=== PATIENT | female | born 1935 | race Caucasian/White ===

== ENCOUNTER 2017-02-10 09:36 | Day surgery (SDC) | payer OTHER ==
[2017-02-09 13:11] VITALS: BMI 27.1
[2017-02-10 10:15] VITALS: TEMP 97.8
[2017-02-10] MEDS ORDERED: BUPIVACAINE HCL/PF 0.25% (2.5MG/ML) 10 ML VIAL ONE (11:59)
[2017-02-10] MEDS ORDERED: MIDAZOLAM HCL 2 MG/2 ML SINGLE DOSE VIAL ONE (12:01)
[2017-02-10] MEDS ORDERED: ceFAZolin SODIUM 1 GM VIAL ONE (12:24)
[2017-02-10] MEDS ORDERED: PROPOFOL 20 ML ONE (12:24)
[2017-02-10] MEDS ORDERED: ceFAZolin SODIUM 1 GM VIAL IVPB ONE (12:25)
[2017-02-10] MEDS ORDERED: LIDOCAINE HCL/PF 2% SDV 5ML VIAL ONE (12:31)
[2017-02-10] MEDS ORDERED: BUPIVACAINE 0.5% /EPI 1:200,000 10 ML VIAL IJ ONE (12:33)
[2017-02-10] MEDS ORDERED: BUPIVACAINE HCL/PF 0.25% (2.5MG/ML) 10 ML VIAL IJ ONE (12:40)
[2017-02-10] MEDS ORDERED: ONDANSETRON 4 MG/2 ML VIAL IVPUSH PRN (13:51)
[2017-02-10] MEDS ORDERED: LACTATED RINGERS SOLUTION 1,000 ML IV SCH (14:00)
[2017-02-10] MEDS ORDERED: oxyCODONE HCL 5 MG TABLET PO PRN (16:25)
[2017-02-10 17:16] VITALS: BP 145/67; PULSE 57
--- NOTE | 2017-02-10 23:13 | OP ---
DATE OF OPERATION: 02/10/2017 PROCEDURE: 1. Adjacent tissue transfer, right foot. 2. Condylectomy of third metatarsal, left foot. 3. Arthroplasty, second digit pipj , left food. 4. Arthroplasty, proximal interphalangeal joint, third digit, left foot. 5. Synovectomy, peroneal tendon, left. 6. Tenotomy and capsulotomy, fourth metatarsophalangeal joint, left. 7. Tenotomy and capsulotomy, fifth metatarsophalangeal joint, left. 8. Neurolysis, third interspace, left. 9. Flexor tenotomy, distal interphalangeal joint, fourth digit, left. 10. Flexor tenotomy, distal interphalangeal joint, fifth digit, left. PREOPERATIVE DIAGNOSES: 1. Skin contracture, cicatrix, dorsum, left foot. 2. Osteoarthritis, third metatarsal, left foot. 3. Hammer digits, second and third, left foot. 4. Peroneal brevis tenosynovitis. 5. Contracture metacarpophalangeal joints four and five, left foot. 6. Neuroma, third interspace, left foot. 7. Mallet toe, fourth and fifth digits, left foot. POSTOPERATIVE DIAGNOSES: 1. Skin contracture, cicatrix, dorsum, left foot. 2. Osteoarthritis, third metatarsal, left foot. 3. Hammer digits, second and third, left foot. 4. Peroneal brevis tenosynovitis. 5. Contracture metacarpophalangeal joints four and five, left foot. 6. Neuroma, third interspace, left foot. 7. Mallet toe, fourth and fifth digits, left foot. SURGEON: Devang Shrestha DPM ANESTHESIA: MAC. ANESTHESIOLOGIST: DESCRIPTION OF PROCEDURE: The patient was brought to the operating room and placed on the OR table in supine position. Neuroleptic anesthesia was administered as well as an ankle block consisting of 0.5% Marcaine plain and 0.5% Marcaine with epinephrine 1:200,000. A well-padded pneumatic ankle tourniquet was inflated to 250 mmHg on the left side to affect hemostasis. The left foot was prepped and draped in the usual sterile fashion. 1. Adjacent tissue transfer, left foot. Attention was directed to the dorsum of the left foot on the lateral side. A large contracted cicatrix was noted paralleling the fifth metatarsal. A linear incision was made paralleling the cicatrix. The incision was deepened down through subcutaneous tissue, maintaining hemostasis as necessary with 4-0 ligature. A Z-plasty was performed to reorientate the cicatrix from a linear to a transverse cicatrix. The central arm is the actual cicatrix and 2 arms on either side at 60-degree angles were planned. The incisions were made on either side of the cicatrix down through, including subcutaneous tissue. Two triangular flaps, including subcutaneous tissue, was rotated so as to reorientate the cicatrix from longitudinal to transverse. Closure was performed using 4-0 nylon simple and apical sutures. 2. Condylectomy, third metatarsal, left foot. A linear incision was made over the third metatarsophalangeal joint. The incision was deepened down through the subcutaneous tissue maintaining hemostasis as necessary with 4-0 ligature. The superficial fascia was freed from the deep fascia. The extensor complex tendon complex was addressed and an open Z-plasty was performed. A linear capsulotomy was created at the third MPJ. An oscillating saw was used to resect the plantar condyle of the third metatarsal. All bony edges were rasped smooth and wound site was flushed with sterile saline. Closure was performed using 4-0 Vicryl joint capsule, extensor tendon and subcutaneous closure and 4-0 nylon for skin. 3. Arthroplasty, PIPJ, second digit, left foot with 0.045 K-wire stabilization. Two converging semi-elliptical incisions were made over the PIPJ second digit, left. The incisions were deepened down and a wedge of skin removed in toto. A transverse incision was made into the PIPJ. The head of the proximal phalanx was delivered into the wound site after transecting the medial and lateral collateral ligaments. The head was then transected using the double action bone cutting forceps. A 0.045 K-wire was driven out the middle and distal phalanx and retrograded into the proximal phalanx. K-wire was bent and cut. Closure was performed using 4-0 Vicryl for extensor tendon and 4-0 nylon for skin. 4. Arthroplasty, PIPJ, third digit, left, with 0.045 K-wire stabilization. Attention was directed to the PIPJ of the third digit, left, where 2 converging semi-elliptical incisions were created. A wedge of skin was removed in toto. Transverse incision was made into the PIPJ of the third digit and the head and of the proximal phalanx was delivered into the wound site. The head of the proximal phalanx was transected and the head was removed using the double action bone cutting forceps. A 0.045 K-wire was driven out the middle and distal phalanx and retrograded back into the proximal phalanx and partially into the third metatarsal head. Wound site was flushed with sterile saline. Closure was performed using 4-0 Vicryl for extensor tendon, 4-0 nylon for the skin. 5. Peroneal tenosynovectomy, left foot. Attention was directed to the insertion of the peroneal brevis tendon. The incision was deepened down through subcutaneous tissue, maintaining hemostasis as necessary with 4-0 Vicryl ligature. Superficial fascia was freed from the deep fascia. The peroneal tendon sheath was identified and a linear incision was made by the insertion going proximally. The peroneal tendon proper was delivered into the wound site. Hypertrophic synovitis was identified and debrided out of the wound site. Part of the peroneal tendon was debrided, as there were longitudinal tears. After a thorough debridement and removal of all of the hypertrophic synovitis, repair of the peroneal tendon sheath was performed with 4-0 Vicryl. Tendon sheath closure 4.0 vicyrl subcutaneous closure 4.0 vcyrl. Skin closure with 4-0 nylon. 6. Tenotomy and capsulotomy, fourth metatarsophalangeal joint, left foot. A linear incision was made between the fourth and fifth MPJs. The incision was deepened down through subcutaneous tissue, maintaining hemostasis as necessary with 4-0 Vicryl ligature. Superficial fascia was freed from the deep fascia. The extensor tendon complex was identified and open Z-plasty was performed. Then, a U-shaped capsulotomy was made into the fourth MPJ. Medial and lateral collateral ligaments were section. The wound site was flushed with sterile saline and the contracture was noted to reduce. Closure was performed using 4-0 Vicryl for extensor tendon complex. 7. Tenotomy and capsulotomy, fifth metatarsophalangeal joint, left foot. With exposure gained from the previous procedure, attention was directed to the extensor tendon complex of the fifth MPJ. Open Z-plasty was performed of the extensor tendon and then a U-shaped capsulotomy was made into the fifth MPJ. Medial and lateral collateral ligaments were sectioned. The contracture was noted to reduce. The wound site was flushed with sterile saline. Closure was performed using 4-0 Vicryl for extensor tendon complex and 4-0 nylon for skin. 8. External neurolysis, third interspace, left foot. Attention was directed to the third interspace, left foot. Previously placed incision was then re-dissected down to the third interspace. Deep transverse metatarsal ligament was sectioned and sharp and blunt dissection was used to free the trapped nerve of the lateral side of the fourth metatarsal head. Nerve was mobilized into the interspace and Celestone was injected along the length of the nerve. The wound site was flushed with sterile saline. Closure was performed using 4-0 nylon for the skin. 9. Flexor tenotomy and capsulotomy, DIPJ, fourth digit left. Attention was directed to the plantar aspect of the DIPJ of the fourth digit, left. The transverse incision was made into the DIPJ. The incision was deepened down to the distal interphalangeal joint where flexor tenotomy and capsulotomy was created transversely and the contracture was noted to reduce. The wound site was flushed with sterile saline. Closure was performed using 4-0 nylon for skin. 10. Flexor tenotomy and capsulotomy, DIPJ, fifth digit, left. Attention was directed to the plantar aspect of the fifth digit where a transverse incision was made at the DIPJ. The incision was deepened down through subcutaneous tissue and transverse tenotomy and capsulotomy was made at the DIPJ, fifth digit, left. Wound site was flushed with sterile saline. Closure was performed using 4-0 nylon. Postoperatively, all surgical sites were dressed with sterile 4 x 4's, Anjali, and Coban wrap. Well-padded pneumatic ankle tourniquet was deflated to the left foot and normal hyperemic flush noted to return to all digits of the left foot. The patient tolerated the surgery and anesthesia well, left the OR room for recovery room with vital signs stable in an apparent satisfactory condition. DEVANG SHRESTHA DPM [id number] [facility]
--- NOTE | 2017-02-14 12:54 | PATH ---
Surgical Pathology Report Patient Name: [facility]. Rec. #: [id number] /Age/Gender: 1935 (Age: 81) / F Account: [id number] Location: [facility] Taken: 02/10/2017 Received: 02/11/2017 Reported: 02/14/2017 Physicians: Devang Montano DPM Specimen(s) Received A: METATARSAL HEAD THIRD DIGIT LEFT FOOT B: METATARSAL HEAD SECOND DIGIT LEFT FOOT C: TENDON LEFT FOOT THIRD TOE Clinical History Hammer digits, tracture skin joints, osteoarthritis Final Diagnosis A. BONE AND CARTILAGE, LEFT FOOT, THIRD METATARSAL HEAD, ARTHROPLASTY: BONE AND CARTILAGE WITH DEGENERATIVE CHANGES. B. BONE AND CARTILAGE, LEFT FOOT, SECOND METATARSAL HEAD, ARTHROPLASTY: BONE AND CARTILAGE WITH DEGENERATIVE CHANGES. C. SOFT TISSUE, LEFT FOOT, THIRD TOE TENDON, EXCISION: BENIGN DENSE FIBROCONNECTIVE TISSUE. Electronically Signed Teofilo Crowder M.D. Gross Description A. Received in formalin labeled "third metatarsal head left foot" is a 1.6 x 0.9 x 0.4 cm zhu, irregular, unremarkable portion of bone. The specimen is partially surfaced by zhu articular cartilage. [place] sections are submitted in one cassette, following decalcification. B. Received in formalin labeled "second digit metatarsal head left foot" is a 1.0 x 0.6 x 0.5 cm zhu, irregular, unremarkable portion of bone. The specimen is partially surfaced by zhu articular cartilage. The specimen is bisected and entirely submitted in one cassette, following decalcification. C. Received in formalin labeled "left foot third toe tendon" are 2 zhu fragments of soft tissue measuring 0.3 and 0.5 cm in greatest dimension. The specimens are submitted in toto in one cassette, following decalcification. 02/11/2017 saudi02/11/2017
== END 2017-02-10 17:17 | disposition home or self-care (01) ==
LOC: JASU-SURG 09:36
PROVIDERS: ATTEND Podiatrist
PROC: 0SNN0ZZ Release Left Metatarsal-Phalangeal Joint, Open Approach (ICD-10-PCS; 2017-02-10)
PROC: 01N50ZZ Release Median Nerve, Open Approach (ICD-10-PCS; 2017-02-10)
PROC: 0LNW0ZZ Release Left Foot Tendon, Open Approach (ICD-10-PCS; 2017-02-10)
PROC: 0SBN0ZZ Excision of Left Metatarsal-Phalangeal Joint, Open Approach (ICD-10-PCS; 2017-02-10)
PROC: 01NH0ZZ Release Peroneal Nerve, Open Approach (ICD-10-PCS; 2017-02-10)
PROC: 0SRQ0JZ Replacement of Left Toe Phalangeal Joint with Synthetic Substitute, Open Approach (ICD-10-PCS; principal; 2017-02-10 12:00)
DX: M20.42 Other hammer toe(s) (acquired), left foot (principal); L90.5 Scar conditions and fibrosis of skin; M19.072 Primary osteoarthritis, left ankle and foot; M65.872 Other synovitis and tenosynovitis, left ankle and foot; M24.575 Contracture, left foot; G57.82 Other specified mononeuropathies of left lower limb
CPT/HCPCS: 88304-TC; 88311-TC; 94760

== ENCOUNTER 2020-11-17 13:57 | Emergency (ER) | payer OTHER ==
[2020-11-17] MEDS ORDERED: LIDOCAINE 5% TOPICAL PATCH TP ONE (14:27)
[2020-11-17 15:10] VITALS: BP 122/52; PULSE 67; TEMP 98.2; BMI 25.7
[2020-11-17] MEDS ORDERED: LIDOCAINE 5% TOPICAL PATCH ONE (15:11)
[2020-11-17] MEDS ORDERED: ACETAMINOPHEN 325 MG TABLET (FP) PO ONE (19:06)
[2020-11-17] MEDS ORDERED: KETOROLAC TROMETHAMINE 15 MG/ML VIAL IM ONE (19:06)
[2020-11-17] MEDS ORDERED: KETOROLAC TROMETHAMINE 15 MG/ML VIAL ONE (19:54)
[2020-11-17] MEDS ORDERED: ACETAMINOPHEN 325 MG TABLET (FP) ONE (19:55)
[2020-11-17] MEDS ORDERED: LIDOCAINE PATCH REMOVAL MC SCH (22:00)
== END 2020-11-17 20:30 | disposition home or self-care (01) ==
LOC: FER 13:57
PROC: 3E0233Z Introduction of Anti-inflammatory into Muscle, Percutaneous Approach (ICD-10-PCS; principal; 2020-11-17)
DX: M54.5 Low back pain (principal)
CPT/HCPCS: 72100-TC-FY; 72170-TC-FY; 99284-25

== ENCOUNTER 2020-12-04 15:09 | Inpatient (IN) | payer OTHER ==
[2020-12-04] MEDS ORDERED: LACTATED RINGERS SOLUTION 1000 ML INFUS.BAG IV ONE (18:39)
[2020-12-04 19:13] LABS: BASO % 0.2 % (0-2.0); HEMATOCRIT 31.6 % (32.4-45.2); HEMOGLOBIN 10.1 GM/dL (10.7-15.3); LYMPH % 5.8 % (8-40); MCH 31.1 pg (25.7-33.7); MCHC 32.1 g/dl (32.0-36.0); MEAN CELL VOLUME 96.8 fl (80-96); MEAN PLT VOLUME 9.3 fl (7.5-11.1); MONO % 77.6 % (3.8-10.2); NEUT % 16.4 % (42.8-82.8); PLATELET COUNT 85 K/MM3 (134-434); RBC 3.26 M/mm3 (3.60-5.2); RDW 17.8 % (11.6-15.6); WHITE BLOOD COUNT 17.4 K/mm3 (4.0-10.0)
[2020-12-04 19:40] LABS: CHLORIDE 108 mmol/L (98-107); SODIUM 137 mmol/L (136-145)
[2020-12-04 19:42] LABS: ALBUMIN 3.6 g/dl (3.4-5.0); ANION GAP 6 MMOL/L (8-16); CALCIUM 9.2 mg/dL (8.5-10.1); CO2 24 mmol/L (21-32)
[2020-12-04 19:43] LABS: BLOOD UREA NITROGEN 76.3 mg/dL (7-18); GLUCOSE,RANDOM 94 mg/dL (74-106)
[2020-12-04 19:46] LABS: CREATININE 2.2 mg/dL (0.55-1.3); SGOT/AST 9 U/L (15-37); SGPT/ALT < 6 U/L (13-61)
[2020-12-04 19:47] LABS: BILIRUBIN,TOTAL 0.6 mg/dL (0.2-1); TOT PROT 5.8 g/dl (6.4-8.2)
[2020-12-04 19:48] LABS: ALK PHOS 147 U/L (45-117)
[2020-12-04 20:45] LABS: ANISOCYTOSIS 0; MACROCYTOSIS 0; PLATELET ESTIMATE DECREASED
[2020-12-04 21:36] LABS: EPI CELLS 33 /uL (0-25.1); HYALINE CASTS 2 /uL (0-3.1); URINE APPEARANCE CLOUDY; URINE BACTERIA 530 /uL (0-1359); URINE BILIRUBIN NEGATIVE (NEGATIVE); URINE COLOR YELLOW; URINE GLUCOSE (UA) NEGATIVE (NEGATIVE); URINE KETONE NEGATIVE (NEGATIVE); URINE LEUK ESTERASE 3+ (NEGATIVE); URINE NITRITE NEGATIVE (NEGATIVE); URINE PROTEIN NEGATIVE (NEGATIVE); URINE RBC 17 /uL (0-23.9); URINE UROBILINOGEN 0.2 mg/dL (0.2-1.0); URINE WBC 72 /uL (0-25.8)
[2020-12-04] MEDS ORDERED: amLODIPine BESYLATE 5 MG TABLET (FP) PO ONE (23:52)
[2020-12-05] MEDS ORDERED: ACETAMINOPHEN 325 MG TABLET (FP) PO PRN (00:41)
[2020-12-05] MEDS ORDERED: SODIUM CHLORIDE 1,000 ML IV SCH (01:00)
[2020-12-05 02:33] LABS: EPI CELLS 18 /uL (0-25.1); HYALINE CASTS 1 /uL (0-3.1); URINE APPEARANCE CLOUDY; URINE BACTERIA 1164 /uL (0-1359); URINE BILIRUBIN NEGATIVE (NEGATIVE); URINE COLOR YELLOW; URINE GLUCOSE (UA) NEGATIVE (NEGATIVE); URINE KETONE NEGATIVE (NEGATIVE); URINE LEUK ESTERASE 3+ (NEGATIVE); URINE NITRITE NEGATIVE (NEGATIVE); URINE PROTEIN NEGATIVE (NEGATIVE); URINE RBC 25 /uL (0-23.9); URINE UROBILINOGEN 0.2 mg/dL (0.2-1.0); URINE WBC 285 /uL (0-25.8)
[2020-12-05] MEDS ORDERED: ALPRAZolam 1 MG TABLET PO ONE (05:01)
[2020-12-05] MEDS ORDERED: LEVOTHYROXINE NA 25 MCG TABLET (FP) ONE (05:05)
[2020-12-05] MEDS ORDERED: ALPRAZolam 0.25 MG TABLET ONE (05:05)
[2020-12-05] MEDS ORDERED: CARBIDOPA/LEVODOPA 25/100 TABLET (FP) ONE ×2 (05:05→15:53)
[2020-12-05] MEDS: CARBIDOPA/LEVODOPA 25/100 TABLET (FP) PO SCH ×3 (05:18→21:40)
[2020-12-05] MEDS: LEVOTHYROXINE NA 50 MCG TABLET (FP) PO SCH (06:24)
[2020-12-05 06:34] LABS: HEMATOCRIT 27.8 % (32.4-45.2); HEMOGLOBIN 9.4 GM/dL (10.7-15.3); MCHC 33.8 g/dl (32.0-36.0); MEAN CELL VOLUME 94.6 fl (80-96); MEAN PLT VOLUME 9.1 fl (7.5-11.1); PLATELET COUNT 79 K/MM3 (134-434); RBC 2.93 M/mm3 (3.60-5.2); RDW 17.6 % (11.6-15.6); WHITE BLOOD COUNT 14.3 K/mm3 (4.0-10.0)
[2020-12-05 06:54] LABS: CHLORIDE 110 mmol/L (98-107); SODIUM 140 mmol/L (136-145)
[2020-12-05 06:56] LABS: CALCIUM 8.8 mg/dL (8.5-10.1)
[2020-12-05 06:57] LABS: ANION GAP 6 MMOL/L (8-16); BLOOD UREA NITROGEN 67.4 mg/dL (7-18); CO2 24 mmol/L (21-32); GLUCOSE,RANDOM 77 mg/dL (74-106); MAGNESIUM 2.1 mg/dL (1.8-2.4)
[2020-12-05 07:00] LABS: CREATININE 1.8 mg/dL (0.55-1.3); PHOSPHOROUS 3.4 mg/dL (2.5-4.9); SGOT/AST 12 U/L (15-37)
[2020-12-05 07:01] LABS: BILIRUBIN,TOTAL 0.6 mg/dL (0.2-1); IRON SERUM 74 ug/dL (50-175); TOT PROT 5.2 g/dl (6.4-8.2); TOTAL IRON BINDING CAPACITY 195 ug/dL (250-450)
[2020-12-05 07:03] LABS: ALK PHOS 134 U/L (45-117)
[2020-12-05 07:14] LABS: SGPT/ALT < 6 U/L (13-61)
[2020-12-05] MEDS ORDERED: LIDOCAINE 5% TOPICAL PATCH ONE (09:24)
[2020-12-05] MEDS: LIDOCAINE 5% TOPICAL PATCH TP SCH (09:39)
[2020-12-05] MEDS ORDERED: DOXYCYCLINE HYCLATE 100 MG CAPSULE PO SCH (10:00)
[2020-12-05 11:08] LABS: URIC ACID 10.4 mg/dL (2.6-7.2)
[2020-12-05 18:33] VITALS: BMI 24.0
[2020-12-05] MEDS: LIDOCAINE PATCH REMOVAL MC SCH (21:41)
[2020-12-06] MEDS: CARBIDOPA/LEVODOPA 25/100 TABLET (FP) PO SCH ×3 (05:47→21:33)
[2020-12-06] MEDS: LEVOTHYROXINE NA 50 MCG TABLET (FP) PO SCH (06:39)
[2020-12-06 09:12] LABS: BASO % 0.1 % (0-2.0); EOS % 0.3 % (0-4.5); HEMATOCRIT 28.8 % (32.4-45.2); HEMOGLOBIN 9.5 GM/dL (10.7-15.3); LYMPH % 5.9 % (8-40); MCH 31.6 pg (25.7-33.7); MCHC 33.1 g/dl (32.0-36.0); MEAN CELL VOLUME 95.3 fl (80-96); MEAN PLT VOLUME 9.1 fl (7.5-11.1); MONO % 80.3 % (3.8-10.2); NEUT % 13.4 % (42.8-82.8); PLATELET COUNT 71 K/MM3 (134-434); RBC 3.02 M/mm3 (3.60-5.2); RDW 17.4 % (11.6-15.6); WHITE BLOOD COUNT 13.9 K/mm3 (4.0-10.0)
[2020-12-06 09:22] LABS: CHLORIDE 110 mmol/L (98-107); SODIUM 139 mmol/L (136-145)
[2020-12-06 09:26] LABS: ALBUMIN 2.8 g/dl (3.4-5.0); ANION GAP 5 MMOL/L (8-16); BLOOD UREA NITROGEN 49.8 mg/dL (7-18); CALCIUM 8.6 mg/dL (8.5-10.1); CO2 24 mmol/L (21-32)
[2020-12-06 09:28] LABS: GLUCOSE,RANDOM 70 mg/dL (74-106)
[2020-12-06 09:30] LABS: CREATININE 1.5 mg/dL (0.55-1.3); SGOT/AST 10 U/L (15-37)
[2020-12-06 09:31] LABS: PHOSPHOROUS 2.6 mg/dL (2.5-4.9)
[2020-12-06 09:32] LABS: BILIRUBIN,TOTAL 0.6 mg/dL (0.2-1); TOT PROT 5.1 g/dl (6.4-8.2)
[2020-12-06 09:33] LABS: ALK PHOS 136 U/L (45-117); SGPT/ALT < 6 U/L (13-61)
[2020-12-06] MEDS ORDERED: cefTRIAXone SODIUM 1 GM VIAL ONE (09:35)
[2020-12-06] MEDS ORDERED: DEXTROSE 5%-WATER - 50 ML IVPB ONE (09:35)
[2020-12-06 09:54] LABS: ANISOCYTOSIS 1+; MACROCYTOSIS 1+; OVALOCYTE 1+; PLATELET ESTIMATE DECREASED
[2020-12-06] MEDS: CEFTRIAXONE 1 GM in DEXTROSE 5%-WATER - 50 ML IVPB SCH (10:24)
[2020-12-06] MEDS: LIDOCAINE 5% TOPICAL PATCH TP SCH (10:26)
[2020-12-06] MEDS: SODIUM CHLORIDE 0.45% 1,000 ML IV SCH (15:51)
[2020-12-06] MEDS ORDERED: PT OWN MED DRAWER 7, Y5N ONE (21:18)
[2020-12-06] MEDS ORDERED: INSULIN (NOVOLOG) ASPART 100 UNITS/ML 10ML VIAL ONE (21:19)
[2020-12-06] MEDS: TERAZOSIN HCL 1 MG CAPSULE PO SCH (21:34)
[2020-12-06] MEDS: LIDOCAINE PATCH REMOVAL MC SCH (21:34)
[2020-12-06] MEDS ORDERED: TERAZOSIN HCL 1 MG PO SCH (22:00)
[2020-12-07] MEDS: CARBIDOPA/LEVODOPA 25/100 TABLET (FP) PO SCH ×3 (06:00→22:24)
[2020-12-07] MEDS: SODIUM CHLORIDE 0.45% 1,000 ML IV SCH (06:00)
[2020-12-07] MEDS: LEVOTHYROXINE NA 50 MCG TABLET (FP) PO SCH (06:01)
[2020-12-07 09:45] LABS: BASO % 0.2 % (0-2.0); EOS % 0.5 % (0-4.5); HEMATOCRIT 28.6 % (32.4-45.2); HEMOGLOBIN 9.5 GM/dL (10.7-15.3); LYMPH % 6.6 % (8-40); MCH 31.6 pg (25.7-33.7); MCHC 33.1 g/dl (32.0-36.0); MEAN CELL VOLUME 95.6 fl (80-96); MEAN PLT VOLUME 9.2 fl (7.5-11.1); MONO % 81.6 % (3.8-10.2); NEUT % 11.1 % (42.8-82.8); PLATELET COUNT 67 K/MM3 (134-434); RBC 2.99 M/mm3 (3.60-5.2); RDW 17.7 % (11.6-15.6); WHITE BLOOD COUNT 14.3 K/mm3 (4.0-10.0)
[2020-12-07 10:16] LABS: CALCIUM 8.6 mg/dL (8.5-10.1)
[2020-12-07 10:17] LABS: BLOOD UREA NITROGEN 42.9 mg/dL (7-18); MAGNESIUM 1.9 mg/dL (1.8-2.4)
[2020-12-07 10:20] LABS: BILIRUBIN,TOTAL 0.9 mg/dL (0.2-1); CREATININE 1.4 mg/dL (0.55-1.3); PHOSPHOROUS 2.5 mg/dL (2.5-4.9)
[2020-12-07] MEDS ORDERED: cefTRIAXone SODIUM 1 GM VIAL ONE (10:20)
[2020-12-07] MEDS ORDERED: DEXTROSE 5%-WATER - 50 ML IVPB ONE (10:21)
[2020-12-07] MEDS: CEFTRIAXONE 1 GM in DEXTROSE 5%-WATER - 50 ML IVPB SCH (10:26)
[2020-12-07] MEDS: LIDOCAINE 5% TOPICAL PATCH TP SCH (10:27)
[2020-12-07 11:23] LABS: ANISOCYTOSIS 1+; MACROCYTOSIS 0; PLATELET ESTIMATE DECREASED
[2020-12-07] MEDS: ACETAMINOPHEN 500 MG TABLET (FP) PO SCH ×2 (17:13→22:25)
[2020-12-07] MEDS ORDERED: PT OWN MED DRAWER 7, Y5N ONE (22:21)
[2020-12-07] MEDS: TERAZOSIN HCL 1 MG CAPSULE PO SCH (22:23)
[2020-12-07] MEDS: LIDOCAINE PATCH REMOVAL MC SCH (22:33)
[2020-12-08] MEDS: ACETAMINOPHEN 500 MG TABLET (FP) PO SCH ×2 (04:38→11:43)
[2020-12-08] MEDS: LEVOTHYROXINE NA 50 MCG TABLET (FP) PO SCH (07:05)
[2020-12-08] MEDS: CARBIDOPA/LEVODOPA 25/100 TABLET (FP) PO SCH ×3 (07:05→21:37)
[2020-12-08 08:50] LABS: BASO % 0.2 % (0-2.0); EOS % 1.2 % (0-4.5); HEMATOCRIT 27.7 % (32.4-45.2); HEMOGLOBIN 8.9 GM/dL (10.7-15.3); LYMPH % 7.1 % (8-40); MCHC 32.2 g/dl (32.0-36.0); MEAN CELL VOLUME 96.1 fl (80-96); MEAN PLT VOLUME 9.5 fl (7.5-11.1); MONO % 79.9 % (3.8-10.2); NEUT % 11.6 % (42.8-82.8); PLATELET COUNT 52 K/MM3 (134-434); RBC 2.88 M/mm3 (3.60-5.2); RDW 17.3 % (11.6-15.6); WHITE BLOOD COUNT 10.4 K/mm3 (4.0-10.0)
[2020-12-08 08:57] LABS: INR 1.2 (0.83-1.09); PROTHROMBIN TIME (PATIENT) 14.7 SEC (9.7-13.0)
[2020-12-08 09:00] LABS: ACTIVATED PTT 28.2 SECONDS (25.2-36.5)
[2020-12-08 09:09] LABS: CHLORIDE 109 mmol/L (98-107); SODIUM 136 mmol/L (136-145)
[2020-12-08 09:17] LABS: CALCIUM 8.2 mg/dL (8.5-10.1)
[2020-12-08 09:18] LABS: ALBUMIN 2.7 g/dl (3.4-5.0); ANION GAP 6 MMOL/L (8-16); BLOOD UREA NITROGEN 35.6 mg/dL (7-18); CO2 21 mmol/L (21-32); GLUCOSE,RANDOM 70 mg/dL (74-106); MAGNESIUM 1.9 mg/dL (1.8-2.4)
[2020-12-08 09:20] LABS: CREATININE 1.3 mg/dL (0.55-1.3)
[2020-12-08 09:21] LABS: PHOSPHOROUS 2.4 mg/dL (2.5-4.9); SGOT/AST 10 U/L (15-37); SGPT/ALT < 6 U/L (13-61)
[2020-12-08 09:22] LABS: BILIRUBIN,TOTAL 0.5 mg/dL (0.2-1); TOT PROT 4.5 g/dl (6.4-8.2)
[2020-12-08 09:23] LABS: ALK PHOS 123 U/L (45-117)
[2020-12-08] MEDS ORDERED: NAPH,MB-DB/K PH,MBDB POWDER PACKET PO ONE (10:00)
[2020-12-08 10:14] LABS: URIC ACID 7.5 mg/dL (2.6-7.2)
[2020-12-08 10:21] LABS: LDH 126 U/L (84-246)
[2020-12-08] MEDS ORDERED: cefTRIAXone SODIUM 1 GM VIAL ONE (10:34)
[2020-12-08] MEDS ORDERED: DEXTROSE 5%-WATER - 50 ML IVPB ONE (10:34)
[2020-12-08] MEDS ORDERED: PT OWN MED DRAWER 7, Y5N ONE ×2 (10:39→21:35)
[2020-12-08] MEDS: LIDOCAINE 5% TOPICAL PATCH TP SCH (10:41)
[2020-12-08] MEDS: CEFTRIAXONE 1 GM in DEXTROSE 5%-WATER - 50 ML IVPB SCH (10:41)
[2020-12-08] MEDS: ACETAMINOPHEN 500 MG TABLET (FP) PO PRN (11:10)
[2020-12-08 12:07] LABS: ANISOCYTOSIS 1+; MACROCYTOSIS 0; OVALOCYTE 1+; PLATELET ESTIMATE DECREASED
[2020-12-08] MEDS: NEOMYCIN/POLYMYXIN/BACITRACIN (TRIPLE ANTIBIOTIC) 28 GM OINTMENT TP SCH (14:19)
[2020-12-08] MEDS: TERAZOSIN HCL 1 MG CAPSULE PO SCH (21:38)
[2020-12-08] MEDS: LIDOCAINE PATCH REMOVAL MC SCH (21:39)
[2020-12-09] MEDS: CARBIDOPA/LEVODOPA 25/100 TABLET (FP) PO SCH ×3 (06:26→21:43)
[2020-12-09] MEDS: LEVOTHYROXINE NA 50 MCG TABLET (FP) PO SCH (06:26)
[2020-12-09 08:44] LABS: BASO % 0.2 % (0-2.0); EOS % 1.3 % (0-4.5); HEMATOCRIT 28.8 % (32.4-45.2); HEMOGLOBIN 9.6 GM/dL (10.7-15.3); MCH 31.7 pg (25.7-33.7); MCHC 33.3 g/dl (32.0-36.0); MEAN CELL VOLUME 95.2 fl (80-96); MEAN PLT VOLUME 9.3 fl (7.5-11.1); MONO % 75.1 % (3.8-10.2); NEUT % 15.4 % (42.8-82.8); PLATELET COUNT 56 K/MM3 (134-434); RBC 3.03 M/mm3 (3.60-5.2); RDW 17.3 % (11.6-15.6); WHITE BLOOD COUNT 10.5 K/mm3 (4.0-10.0)
[2020-12-09 09:08] LABS: CHLORIDE 108 mmol/L (98-107); SODIUM 136 mmol/L (136-145)
[2020-12-09 09:13] LABS: ALBUMIN 2.8 g/dl (3.4-5.0); BLOOD UREA NITROGEN 31.3 mg/dL (7-18); CALCIUM 8.7 mg/dL (8.5-10.1); GLUCOSE,RANDOM 70 mg/dL (74-106)
[2020-12-09 09:16] LABS: ANION GAP 7 MMOL/L (8-16); CO2 21 mmol/L (21-32); CREATININE 1.3 mg/dL (0.55-1.3); PHOSPHOROUS 2.3 mg/dL (2.5-4.9); SGOT/AST 11 U/L (15-37)
[2020-12-09 09:17] LABS: BILIRUBIN,TOTAL 0.4 mg/dL (0.2-1); TOT PROT 4.9 g/dl (6.4-8.2)
[2020-12-09 09:18] LABS: ALK PHOS 137 U/L (45-117)
[2020-12-09] MEDS ORDERED: DEXTROSE 5%-WATER - 50 ML IVPB ONE (09:24)
[2020-12-09] MEDS ORDERED: cefTRIAXone SODIUM 1 GM VIAL ONE (09:24)
[2020-12-09 09:26] LABS: SGPT/ALT < 6 U/L (13-61)
[2020-12-09] MEDS: CEFTRIAXONE 1 GM in DEXTROSE 5%-WATER - 50 ML IVPB SCH (09:29)
[2020-12-09] MEDS: ACETAMINOPHEN 500 MG TABLET (FP) PO PRN (09:30)
[2020-12-09] MEDS: LIDOCAINE 5% TOPICAL PATCH TP SCH (09:30)
[2020-12-09] MEDS: NEOMYCIN/POLYMYXIN/BACITRACIN (TRIPLE ANTIBIOTIC) 28 GM OINTMENT TP SCH (09:41)
[2020-12-09] MEDS ORDERED: NAPH,MB-DB/K PH,MBDB POWDER PACKET PO ONE (11:25)
[2020-12-09 12:22] LABS: ANISOCYTOSIS 0; HELMET CELLS 0; HOWELL-JOLLY BODIES 0; MACROCYTOSIS 0; OVALOCYTE 0; PLATELET ESTIMATE DECREASED; ROULEAU 0; SICKELED CELLS 0; TARGET CELLS 0; TEAR DROP CELLS 0; TOXIC GRANULATION 0
[2020-12-09] MEDS ORDERED: PT OWN MED DRAWER 7, Y5N ONE (21:30)
[2020-12-09] MEDS: TERAZOSIN HCL 1 MG CAPSULE PO SCH (21:43)
[2020-12-09] MEDS: LIDOCAINE PATCH REMOVAL MC SCH (21:43)
[2020-12-10] MEDS: ACETAMINOPHEN 500 MG TABLET (FP) PO PRN (03:19)
[2020-12-10] MEDS: CARBIDOPA/LEVODOPA 25/100 TABLET (FP) PO SCH (06:22)
[2020-12-10] MEDS: LEVOTHYROXINE NA 50 MCG TABLET (FP) PO SCH (06:22)
[2020-12-10 09:25] LABS: BASO % 0.3 % (0-2.0); EOS % 1.1 % (0-4.5); HEMATOCRIT 28.5 % (32.4-45.2); HEMOGLOBIN 9.6 GM/dL (10.7-15.3); LYMPH % 10.2 % (8-40); MCH 31.8 pg (25.7-33.7); MCHC 33.5 g/dl (32.0-36.0); MEAN CELL VOLUME 94.7 fl (80-96); MEAN PLT VOLUME 9.8 fl (7.5-11.1); MONO % 72.6 % (3.8-10.2); NEUT % 15.8 % (42.8-82.8); PLATELET COUNT 61 K/MM3 (134-434); RBC 3.01 M/mm3 (3.60-5.2); RDW 17.3 % (11.6-15.6); WHITE BLOOD COUNT 8.7 K/mm3 (4.0-10.0)
[2020-12-10 09:40] LABS: CHLORIDE 108 mmol/L (98-107); SODIUM 135 mmol/L (136-145)
[2020-12-10 09:56] LABS: CALCIUM 8.9 mg/dL (8.5-10.1)
[2020-12-10 09:58] LABS: ALBUMIN 2.9 g/dl (3.4-5.0)
[2020-12-10 09:59] LABS: ANION GAP 6 MMOL/L (8-16); BILIRUBIN,TOTAL 0.4 mg/dL (0.2-1); BLOOD UREA NITROGEN 30.1 mg/dL (7-18); CO2 22 mmol/L (21-32); GLUCOSE,RANDOM 72 mg/dL (74-106)
[2020-12-10 10:00] LABS: ALK PHOS 135 U/L (45-117)
[2020-12-10] MEDS ORDERED: CEPHALEXIN MONOHYDRATE 500 MG CAPSULE (UD) PO SCH (10:00)
[2020-12-10 10:01] LABS: SGPT/ALT < 6 U/L (13-61)
[2020-12-10 10:02] LABS: CREATININE 1.5 mg/dL (0.55-1.3); PHOSPHOROUS 2.5 mg/dL (2.5-4.9); SGOT/AST 14 U/L (15-37); TOT PROT 4.9 g/dl (6.4-8.2)
[2020-12-10 11:03] VITALS: BP 104/52; PULSE 52; TEMP 98
[2020-12-10] MEDS: LIDOCAINE 5% TOPICAL PATCH TP SCH (11:04)
[2020-12-10] MEDS: NEOMYCIN/POLYMYXIN/BACITRACIN (TRIPLE ANTIBIOTIC) 28 GM OINTMENT TP SCH (11:04)
[2020-12-10 11:21] LABS: ANISOCYTOSIS 0; HELMET CELLS 0; HOWELL-JOLLY BODIES 0; MACROCYTOSIS 0; OVALOCYTE 0; PLATELET ESTIMATE DECREASED; ROULEAU 0; SICKELED CELLS 0; TARGET CELLS 0; TEAR DROP CELLS 0; TOXIC GRANULATION 0
[2020-12-10] MEDS ORDERED: DEXTROSE 5%-0.45% SALINE 1,000 ML IV SCH (12:45)
== END 2020-12-10 14:13 | disposition home health service (06) | DRG 690 ==
LOC: JER 15:09 → JERBED 23:49 → J6S 12-05 18:09
PROVIDERS: ADMIT Internal Medicine; ATTEND Internal Medicine
DX: N39.0 Urinary tract infection, site not specified (principal); S32.030A Wedge compression fracture of third lumbar vertebra, initial encounter for closed fracture; C91.40 Hairy cell leukemia not having achieved remission; N17.9 Acute kidney failure, unspecified; B96.4 Proteus (mirabilis) (morganii) as the cause of diseases classified elsewhere; E03.9 Hypothyroidism, unspecified; M25.551 Pain in right hip; G20 Parkinson's disease; D69.6 Thrombocytopenia, unspecified; I12.9 Hypertensive chronic kidney disease with stage 1 through stage 4 chronic kidney disease, or unspecified chronic kidney disease; N18.30 Chronic kidney disease, stage 3 unspecified; E87.5 Hyperkalemia; R16.1 Splenomegaly, not elsewhere classified; F41.9 Anxiety disorder, unspecified; Z93.2 Ileostomy status; Z88.0 Allergy status to penicillin; Z85.43 Personal history of malignant neoplasm of ovary
CPT/HCPCS: 36415; 71045-TC-FY; 73523-TC-FY; 76775-TC; 80048; 80053; 81003; 82436; 82570; 82607; 82728; 82746; 83540; 83550; 83615; 83735; 84100; 84133; 84300; 84550; 85025; 85027; 85610; 85730; 86850; 86900; 86901; 87040; 87086; 87186; 88300-TC; 93005; 93010; 97116-GP; 97162-GP; 99285-25; C9803; U0003; U0005

== ENCOUNTER 2021-03-18 12:59 | Emergency (ER) | payer OTHER ==
[2021-03-18 13:11] VITALS: BP 147/63; PULSE 71; TEMP 97.9; BMI 23.1
[2021-03-18] MEDS ORDERED: traMADol HCL 50 MG TABLET PO ONE (14:00)
[2021-03-18] MEDS ORDERED: traMADol HCL 50 MG TABLET ONE (14:06)
== END 2021-03-18 14:49 | disposition home or self-care (01) ==
LOC: FER 12:59
DX: M25.551 Pain in right hip (principal)
CPT/HCPCS: 73523-TC-FY; 99283-25

== ENCOUNTER 2021-03-23 09:16 | Emergency (ER) | payer OTHER ==
[2021-03-23 09:47] VITALS: BP 150/75; PULSE 77; TEMP 98; BMI 23.1
[2021-03-23] MEDS ORDERED: KETOROLAC TROMETHAMINE 60 MG/2 ML VIAL IM ONE (10:06)
[2021-03-23] MEDS ORDERED: KETOROLAC TROMETHAMINE 15 MG/ML VIAL ONE (10:08)
== END 2021-03-23 13:25 | disposition home or self-care (01) ==
LOC: FER 09:16
PROC: 3E0233Z Introduction of Anti-inflammatory into Muscle, Percutaneous Approach (ICD-10-PCS; principal; 2021-03-23)
DX: S32.030A Wedge compression fracture of third lumbar vertebra, initial encounter for closed fracture (principal)
CPT/HCPCS: 72131-TC; 99285-25

== ENCOUNTER 2021-05-23 11:10 | Inpatient (IN) | payer OTHER ==
[2021-05-23 11:27] VITALS: BMI 20.5
[2021-05-23] MEDS ORDERED: ACETAMINOPHEN 1000 MG/100 ML VIAL (NON FORMULARY) IVPB ONE (12:20)
[2021-05-23] MEDS ORDERED: SODIUM CHLORIDE 0.9% 1000 ML INFUS.BAG IV ONE (12:20)
[2021-05-23] MEDS ORDERED: ACETAMINOPHEN INJECTION 100 ML IVPB ONE (12:43)
[2021-05-23 12:44] LABS: ALBUMIN 4.2 g/dl (3.4-5.0); ALK PHOS 54 U/L (45-117); ANION GAP 13 MMOL/L (8-16); BILIRUBIN,TOTAL 1.2 mg/dl (0.2-1); CALCIUM 8.2 mg/dl (8.5-10); CHLORIDE 109 mmol/L (98-107); CO2 11 mmol/L (21-32); CREATININE 4.1 mg/dl (0.55-1.3); GLUCOSE,RANDOM 94 mg/dl (74-106); SGOT/AST 14 U/L (15-37); SGPT/ALT 9 U/L (13-61); SODIUM 133 mmol/L (136-145); TOT PROT 6.6 g/dl (6.4-8.2)
[2021-05-23 12:48] LABS: INR 1.05 (0.82-1.09); PROTHROMBIN TIME (PATIENT) 11.7 SEC (10.2-13.0)
[2021-05-23] MEDS ORDERED: DEXTROSE 50%-WATER - 25 GM/50 ML VIAL IVPUSH ONE (12:48)
[2021-05-23] MEDS ORDERED: INSULIN REGULAR HUMAN 100 UNITS/ML *VIAL IVPUSH ONE (12:48)
[2021-05-23] MEDS ORDERED: CALCIUM GLUCONATE 10% - 1,000 MG/10 ML VIAL IVPUSH ONE (12:48)
[2021-05-23] MEDS ORDERED: SODIUM ZIRCONIUM CYCLOSILICATE (LOKELMA) 5 GM PACKET ONE ×3 (12:59→13:05)
[2021-05-23] MEDS ORDERED: CALCIUM GLUCONATE 10% - 1,000 MG/10 ML VIAL ONE (12:59)
[2021-05-23] MEDS ORDERED: DEXTROSE 50%-WATER 25 GM/50 ML DISP.SYRIN ONE (13:00)
[2021-05-23] MEDS ORDERED: INSULIN REGULAR HUMAN 100 UNITS/ML *VIAL ONE (13:00)
[2021-05-23] MEDS: SODIUM ZIRCONIUM CYCLOSILICATE (LOKELMA) 5 GM PACKET PO SCH (13:20)
[2021-05-23] MEDS ORDERED: CEFTRIAXONE 1,000 MG in DEXTROSE 5%-WATER - 50 ML IVPB ONE (13:22)
[2021-05-23] MEDS ORDERED: LACTATED RINGERS SOLUTION 1000 ML INFUS.BAG IV ONE ×2 (13:23→14:34)
[2021-05-23] MEDS ORDERED: cefTRIAXone SODIUM 1 GM VIAL ONE (13:27)
[2021-05-23 13:40] LABS: HEMATOCRIT 33.7 % (32.4-45.2); HEMOGLOBIN 10.5 GM/dL (10.7-15.3); MCH 29.1 pg (25.7-33.7); MCHC 31.1 g/dl (32.0-36.0); MEAN CELL VOLUME 93.5 fl (80-96); MEAN PLT VOLUME 8.1 fl (7.5-11.1); PLATELET COUNT 88 10^3/uL (134-434); RDW 17.6 % (11.6-15.6)
[2021-05-23 13:49] LABS: EPITHELIAL CELLS FEW /hpf
[2021-05-23 13:52] LABS: WHITE BLOOD COUNT 65.1 K/mm3 (4.0-10.0)
[2021-05-23 14:51] LABS: ANISOCYTOSIS 1+; MACROCYTOSIS 0; PLATELET ESTIMATE DECREASED
[2021-05-23] MEDS ORDERED: ALBUTEROL SO4 0.083% IH SOL 2.5 MG/3 ML VIAL.NEB. NEB ONE ×2 (15:06→15:08)
[2021-05-23 20:26] LABS: CALCIUM 7.7 mg/dl (8.5-10); CREATININE 3.5 mg/dl (0.55-1.3)
[2021-05-23 20:29] LABS: BILIRUBIN,DIRECT 0.1 mg/dL (0.0-0.2)
[2021-05-23] MEDS ORDERED: MICONAZOLE NITRATE 85 GM TP SCH (22:00)
[2021-05-24] MEDS: SODIUM BICARBONATE 650 MG TABLET PO SCH ×4 (06:53→22:28)
[2021-05-24] MEDS: LEVOTHYROXINE NA 50 MCG TABLET (FP) PO SCH (06:53)
[2021-05-24] MEDS: MELATONIN 5 MG TABLETS PO SCH ×2 (06:53→22:28)
[2021-05-24] MEDS ORDERED: PT OWN MED DRAWER 7, Y5N ONE ×2 (09:53→12:00)
[2021-05-24] MEDS ORDERED: PATIENT'S OWN MEDICATION (NON-FORMULARY) (Sodium Zirconium Cyclosilicate 10 GM Packet) PO SCH (10:00)
[2021-05-24] MEDS ORDERED: PATIENT'S OWN MEDICATION (NON-FORMULARY) (Ammonium Lactate Cream 1 APPLIC Tube) TP SCH (10:00)
[2021-05-24] MEDS: LORATADINE 10 MG TABLET PO SCH (10:03)
[2021-05-24] MEDS: ASCORBIC ACID 500 MG TABLET (FP) PO SCH (10:03)
[2021-05-24] MEDS: MAGNESIUM OXIDE 400 MG TABLET (FP) PO SCH (10:04)
[2021-05-24] MEDS: FERROUS SO4 325 MG TABLET (FP) PO SCH (10:04)
[2021-05-24] MEDS: SODIUM ZIRCONIUM CYCLOSILICATE (LOKELMA) 5 GM PACKET PO SCH (10:07)
[2021-05-24] MEDS: ALPRAZolam 0.25 MG TABLET PO SCH (10:07)
[2021-05-24] MEDS: SODIUM BICARBONATE 8.4% - 75 MEQ in SODIUM CHLORIDE 0.45% 1,000 ML IV SCH (12:43)
[2021-05-24] MEDS: SOLIFENACIN SUCCINATE 5 MG TAB PO SCH (14:22)
[2021-05-24 17:44] LABS: CALCIUM 7.4 mg/dL (8.5-10.1)
[2021-05-24 17:45] LABS: BLOOD UREA NITROGEN 84.4 mg/dL (7-18)
[2021-05-24 17:48] LABS: CREATININE 2.8 mg/dL (0.55-1.3)
[2021-05-24] MEDS ORDERED: ACETAMINOPHEN 325 MG TABLET (FP) PO PRN (18:08)
[2021-05-24] MEDS ORDERED: cefTRIAXone SODIUM 1 GM VIAL ONE ×2 (18:29→18:35)
[2021-05-24] MEDS ORDERED: DEXTROSE 5%-WATER - 50 ML IVPB ONE ×2 (18:29→18:35)
[2021-05-24] MEDS: CEFTRIAXONE 1 GM in DEXTROSE 5%-WATER - 50 ML IVPB SCH (18:31)
[2021-05-24] MEDS ORDERED: ZINC OXIDE 20% TOPICAL OINTMENT 30 GM TUBE TP ONE (20:39)
[2021-05-25] MEDS: SODIUM BICARBONATE 650 MG TABLET PO SCH ×3 (06:35→22:17)
[2021-05-25] MEDS: SODIUM BICARBONATE 8.4% - 75 MEQ in SODIUM CHLORIDE 0.45% 1,000 ML IV SCH ×2 (06:35→16:36)
[2021-05-25] MEDS: LEVOTHYROXINE NA 50 MCG TABLET (FP) PO SCH (06:35)
[2021-05-25 07:07] LABS: CALCIUM 7.3 mg/dL (8.5-10.1)
[2021-05-25 07:08] LABS: BLOOD UREA NITROGEN 74.7 mg/dL (7-18)
[2021-05-25 07:10] LABS: CREATININE 2.5 mg/dL (0.55-1.3); HEMATOCRIT 27.8 % (32.4-45.2); HEMOGLOBIN 9.3 GM/dL (10.7-15.3); MCH 30.2 pg (25.7-33.7); MCHC 33.4 g/dl (32.0-36.0); MEAN CELL VOLUME 90.4 fl (80-96); PLATELET COUNT 68 10^3/uL (134-434); RBC 3.07 M/mm3 (3.60-5.2); WHITE BLOOD COUNT 22.4 K/mm3 (4.0-10.0)
[2021-05-25 07:12] LABS: BILIRUBIN,TOTAL 0.4 mg/dL (0.2-1); TOT PROT 5.1 g/dl (6.4-8.2)
[2021-05-25 07:50] LABS: ALBUMIN 2.8 g/dl (3.4-5.0)
[2021-05-25] MEDS ORDERED: PT OWN MED DRAWER 7, Y5N ONE (08:57)
[2021-05-25] MEDS ORDERED: cefTRIAXone SODIUM 1 GM VIAL ONE (08:57)
[2021-05-25] MEDS ORDERED: DEXTROSE 5%-WATER - 50 ML IVPB ONE (08:58)
[2021-05-25] MEDS: CEFTRIAXONE 1 GM in DEXTROSE 5%-WATER - 50 ML IVPB SCH (09:00)
[2021-05-25] MEDS: LORATADINE 10 MG TABLET PO SCH (09:01)
[2021-05-25] MEDS: FERROUS SO4 325 MG TABLET (FP) PO SCH (09:01)
[2021-05-25] MEDS: ALPRAZolam 0.25 MG TABLET PO SCH (09:01)
[2021-05-25] MEDS: ASCORBIC ACID 500 MG TABLET (FP) PO SCH (09:01)
[2021-05-25] MEDS: MAGNESIUM OXIDE 400 MG TABLET (FP) PO SCH (09:01)
[2021-05-25] MEDS: SODIUM ZIRCONIUM CYCLOSILICATE (LOKELMA) 5 GM PACKET PO SCH (09:01)
[2021-05-25] MEDS: SOLIFENACIN SUCCINATE 5 MG TAB PO SCH (09:30)
[2021-05-25 15:45] LABS: ANISOCYTOSIS 0; MACROCYTOSIS 0; PLATELET ESTIMATE DECREASED
[2021-05-25 20:58] LABS: HEMATOCRIT 28.7 % (32.4-45.2); HEMOGLOBIN 9.4 GM/dL (10.7-15.3); MCH 29.6 pg (25.7-33.7); MCHC 32.7 g/dl (32.0-36.0); MEAN CELL VOLUME 90.5 fl (80-96); MEAN PLT VOLUME 7.7 fl (7.5-11.1); PLATELET COUNT 78 10^3/uL (134-434); RBC 3.17 M/mm3 (3.60-5.2); WHITE BLOOD COUNT 27.6 K/mm3 (4.0-10.0)
[2021-05-25] MEDS: MELATONIN 5 MG TABLETS PO SCH (22:17)
[2021-05-26] MEDS: SODIUM BICARBONATE 8.4% - 75 MEQ in SODIUM CHLORIDE 0.45% 1,000 ML IV SCH (04:22)
[2021-05-26] MEDS: LEVOTHYROXINE NA 50 MCG TABLET (FP) PO SCH (06:21)
[2021-05-26] MEDS: SODIUM BICARBONATE 650 MG TABLET PO SCH ×3 (06:21→22:29)
[2021-05-26 06:46] LABS: HEMATOCRIT 24.4 % (32.4-45.2); HEMOGLOBIN 8.1 GM/dL (10.7-15.3); MCH 30.1 pg (25.7-33.7); MCHC 33.4 g/dl (32.0-36.0); MEAN CELL VOLUME 90.2 fl (80-96); MEAN PLT VOLUME 7.9 fl (7.5-11.1); PLATELET COUNT 67 10^3/uL (134-434); RBC 2.71 M/mm3 (3.60-5.2); RDW 16.6 % (11.6-15.6); WHITE BLOOD COUNT 15.6 K/mm3 (4.0-10.0)
[2021-05-26 07:02] LABS: CHLORIDE 114 mmol/L (98-107); SODIUM 141 mmol/L (136-145)
[2021-05-26 07:08] LABS: ALBUMIN 2.5 g/dl (3.4-5.0); ANION GAP 7 MMOL/L (8-16); BLOOD UREA NITROGEN 63.1 mg/dL (7-18); CO2 20 mmol/L (21-32); GLUCOSE,RANDOM 75 mg/dL (74-106); MAGNESIUM 1.5 mg/dL (1.8-2.4)
[2021-05-26 07:11] LABS: SGOT/AST 8 U/L (15-37); SGPT/ALT 7 U/L (13-61)
[2021-05-26 07:12] LABS: PHOSPHOROUS 3.3 mg/dL (2.5-4.9)
[2021-05-26 07:13] LABS: BILIRUBIN,TOTAL 0.4 mg/dL (0.2-1); TOT PROT 4.5 g/dl (6.4-8.2)
[2021-05-26 07:14] LABS: ALK PHOS 39 U/L (45-117)
[2021-05-26 07:33] LABS: CALCIUM 6.9 mg/dL (8.5-10.1)
[2021-05-26] MEDS ORDERED: CALCIUM GLUCONATE 10% - 1,000 MG/10 ML VIAL IVPB ONE (09:37)
[2021-05-26] MEDS ORDERED: PT OWN MED DRAWER 7, Y5N ONE ×4 (09:44→17:22)
[2021-05-26] MEDS ORDERED: LACTATED RINGERS SOLUTION 1,000 ML/1,000 ML INFUS.BAG IV SCH (09:45)
[2021-05-26] MEDS ORDERED: DEXTROSE 5%-WATER - 50 ML IVPB ONE (09:46)
[2021-05-26] MEDS ORDERED: cefTRIAXone SODIUM 1 GM VIAL ONE (09:46)
[2021-05-26] MEDS: ASCORBIC ACID 500 MG TABLET (FP) PO SCH (09:48)
[2021-05-26] MEDS: CEFTRIAXONE 1 GM in DEXTROSE 5%-WATER - 50 ML IVPB SCH (09:48)
[2021-05-26] MEDS: LORATADINE 10 MG TABLET PO SCH (09:48)
[2021-05-26] MEDS: MAGNESIUM OXIDE 400 MG TABLET (FP) PO SCH (09:49)
[2021-05-26] MEDS: ALPRAZolam 0.25 MG TABLET PO SCH (09:49)
[2021-05-26] MEDS: SODIUM ZIRCONIUM CYCLOSILICATE (LOKELMA) 5 GM PACKET PO SCH (09:49)
[2021-05-26] MEDS: FERROUS SO4 325 MG TABLET (FP) PO SCH (09:49)
[2021-05-26 10:26] LABS: ANISOCYTOSIS 1+; MACROCYTOSIS 0; PLATELET ESTIMATE DECREASED
[2021-05-26] MEDS: SOLIFENACIN SUCCINATE 5 MG TAB PO SCH (13:07)
[2021-05-26] MEDS ORDERED: MINERAL OIL ENEMA 133 ML ENEMA RC ONE (17:00)
[2021-05-26] MEDS ORDERED: ACETAMINOPHEN 325 MG TABLET (FP) PO PRN (20:54)
[2021-05-26] MEDS: LACTATED RINGERS SOLUTION 1,000 ML/1,000 ML INFUS.BAG IV SCH (21:00)
[2021-05-26] MEDS: MELATONIN 5 MG TABLETS PO SCH (22:29)
[2021-05-27] MEDS: SODIUM BICARBONATE 650 MG TABLET PO SCH ×3 (05:11→21:43)
[2021-05-27] MEDS: LEVOTHYROXINE NA 50 MCG TABLET (FP) PO SCH (07:16)
[2021-05-27] MEDS: LACTATED RINGERS SOLUTION 1,000 ML/1,000 ML INFUS.BAG IV SCH ×2 (07:16→14:02)
[2021-05-27 07:25] LABS: HEMATOCRIT 26.3 % (32.4-45.2); HEMOGLOBIN 8.7 GM/dL (10.7-15.3); MCH 29.6 pg (25.7-33.7); MEAN CELL VOLUME 89.6 fl (80-96); MEAN PLT VOLUME 7.6 fl (7.5-11.1); PLATELET COUNT 67 10^3/uL (134-434); RBC 2.93 M/mm3 (3.60-5.2); RDW 16.6 % (11.6-15.6); WHITE BLOOD COUNT 16.4 K/mm3 (4.0-10.0)
[2021-05-27 07:53] LABS: CALCIUM 7.1 mg/dL (8.5-10.1)
[2021-05-27 07:54] LABS: ALBUMIN 2.6 g/dl (3.4-5.0)
[2021-05-27 07:55] LABS: MAGNESIUM 1.3 mg/dL (1.8-2.4)
[2021-05-27 07:56] LABS: PHOSPHOROUS 2.7 mg/dL (2.5-4.9)
[2021-05-27 07:57] LABS: BILIRUBIN,TOTAL 0.4 mg/dL (0.2-1); CREATININE 1.8 mg/dL (0.55-1.3); TOT PROT 4.9 g/dl (6.4-8.2)
[2021-05-27] MEDS ORDERED: MAGNESIUM SULF 50% (8.12 MEQ/2 ML-1 GM VIAL) IVPB ONE ×2 (08:09→11:49)
[2021-05-27] MEDS ORDERED: MINERAL OIL ENEMA 133 ML ENEMA RC ONE (08:33)
[2021-05-27 09:15] LABS: ANISOCYTOSIS 1+; MACROCYTOSIS 0; OVALOCYTE 1+; PLATELET ESTIMATE DECREASED; TEAR DROP CELLS 1+
[2021-05-27] MEDS ORDERED: DEXTROSE 5%-WATER - 50 ML IVPB ONE (09:45)
[2021-05-27] MEDS ORDERED: cefTRIAXone SODIUM 1 GM VIAL ONE (09:45)
[2021-05-27] MEDS: FERROUS SO4 325 MG TABLET (FP) PO SCH (09:49)
[2021-05-27] MEDS: ALPRAZolam 0.25 MG TABLET PO SCH (09:49)
[2021-05-27] MEDS: MAGNESIUM OXIDE 400 MG TABLET (FP) PO SCH (09:49)
[2021-05-27] MEDS: CEFTRIAXONE 1 GM in DEXTROSE 5%-WATER - 50 ML IVPB SCH (09:49)
[2021-05-27] MEDS: ASCORBIC ACID 500 MG TABLET (FP) PO SCH (09:49)
[2021-05-27] MEDS: LORATADINE 10 MG TABLET PO SCH (09:49)
[2021-05-27] MEDS ORDERED: PT OWN MED DRAWER 7, Y5N ONE ×2 (09:59→21:41)
[2021-05-27] MEDS: AMMONIUM LACTATE 12% LOTION 225 GM BOTTLE TP SCH (10:03)
[2021-05-27] MEDS: SOLIFENACIN SUCCINATE 5 MG TAB PO SCH (10:04)
[2021-05-27] MEDS: MICONAZOLE NITRATE 14 GM/TUBE TUBE TP SCH ×2 (10:08→23:38)
[2021-05-27] MEDS: SODIUM ZIRCONIUM CYCLOSILICATE (LOKELMA) 10 GM PACKET PO SCH (10:49)
[2021-05-27 13:07] LABS: ANTIGLOMERULAR BASEMENT MEN.AB 3 units (0-20)
[2021-05-27 18:10] LABS: ATYPICAL pANCA <1:20 titer (Neg:<1:20); C-ANCA <1:20 titer (Neg:<1:20)
[2021-05-27 20:07] LABS: HEMOGLOBIN 8.8 GM/dL (10.7-15.3); MCH 29.5 pg (25.7-33.7); MCHC 32.7 g/dl (32.0-36.0); MEAN CELL VOLUME 90.3 fl (80-96); MEAN PLT VOLUME 7.4 fl (7.5-11.1); PLATELET COUNT 69 10^3/uL (134-434); RBC 2.99 M/mm3 (3.60-5.2); WHITE BLOOD COUNT 16.5 K/mm3 (4.0-10.0)
[2021-05-27] MEDS: MELATONIN 5 MG TABLETS PO SCH (21:43)
[2021-05-27] MEDS ORDERED: MINERAL OIL ENEMA 133 ML ENEMA PR ONE (22:00)
[2021-05-28] MEDS: SODIUM BICARBONATE 650 MG TABLET PO SCH ×3 (05:23→21:05)
[2021-05-28] MEDS: LEVOTHYROXINE NA 50 MCG TABLET (FP) PO SCH (06:53)
[2021-05-28 07:05] LABS: HEMATOCRIT 25.9 % (32.4-45.2); HEMOGLOBIN 8.5 GM/dL (10.7-15.3); MCHC 32.9 g/dl (32.0-36.0); MEAN PLT VOLUME 7.2 fl (7.5-11.1); PLATELET COUNT 63 10^3/uL (134-434); RBC 2.84 M/mm3 (3.60-5.2); RDW 17.4 % (11.6-15.6); WHITE BLOOD COUNT 12.2 K/mm3 (4.0-10.0)
[2021-05-28 07:49] LABS: ALBUMIN 2.7 g/dl (3.4-5.0); BLOOD UREA NITROGEN 42.9 mg/dL (7-18); CALCIUM 7.4 mg/dL (8.5-10.1)
[2021-05-28 07:50] LABS: MAGNESIUM 1.8 mg/dL (1.8-2.4)
[2021-05-28 07:52] LABS: CREATININE 1.7 mg/dL (0.55-1.3); PHOSPHOROUS 2.3 mg/dL (2.5-4.9)
[2021-05-28 07:54] LABS: BILIRUBIN,TOTAL 0.4 mg/dL (0.2-1); TOT PROT 4.9 g/dl (6.4-8.2)
[2021-05-28] MEDS: LACTATED RINGERS SOLUTION 1,000 ML/1,000 ML INFUS.BAG IV SCH ×2 (08:50→11:55)
[2021-05-28] MEDS ORDERED: cefTRIAXone SODIUM 1 GM VIAL ONE (09:34)
[2021-05-28] MEDS ORDERED: DEXTROSE 5%-WATER - 50 ML IVPB ONE (09:34)
[2021-05-28] MEDS ORDERED: PT OWN MED DRAWER 7, Y5N ONE (09:34)
[2021-05-28] MEDS: LORATADINE 10 MG TABLET PO SCH (09:40)
[2021-05-28] MEDS: MAGNESIUM OXIDE 400 MG TABLET (FP) PO SCH (09:40)
[2021-05-28] MEDS: CEFTRIAXONE 1 GM in DEXTROSE 5%-WATER - 50 ML IVPB SCH (09:40)
[2021-05-28] MEDS: ASCORBIC ACID 500 MG TABLET (FP) PO SCH (09:40)
[2021-05-28] MEDS: FERROUS SO4 325 MG TABLET (FP) PO SCH (09:40)
[2021-05-28] MEDS: ALPRAZolam 0.25 MG TABLET PO SCH (09:40)
[2021-05-28] MEDS: SODIUM ZIRCONIUM CYCLOSILICATE (LOKELMA) 10 GM PACKET PO SCH (09:41)
[2021-05-28] MEDS: SOLIFENACIN SUCCINATE 5 MG TAB PO SCH (09:41)
[2021-05-28] MEDS: MICONAZOLE NITRATE 14 GM/TUBE TUBE TP SCH ×2 (09:45→21:07)
[2021-05-28] MEDS: AMMONIUM LACTATE 12% LOTION 225 GM BOTTLE TP SCH (09:46)
[2021-05-28 09:56] LABS: ANISOCYTOSIS 1+; MACROCYTOSIS 0; PLATELET ESTIMATE DECREASED
[2021-05-28] MEDS ORDERED: SODIUM PHOSPHATE - 20 MM in DEXTROSE 5%-WATER - 250 ML IVPB ONE (11:00)
[2021-05-28] MEDS ORDERED: MINERAL OIL ENEMA 133 ML ENEMA RC ONE (13:19)
[2021-05-28] MEDS ORDERED: SODIUM CHLORIDE 0.45% 1,000 ML IV SCH (16:00)
[2021-05-28 16:08] LABS: FREE KAPPA,SERUM 65.3 mg/L (3.3-19.4)
[2021-05-28] MEDS: MELATONIN 5 MG TABLETS PO SCH (21:05)
[2021-05-29] MEDS: SODIUM BICARBONATE 650 MG TABLET PO SCH ×3 (06:06→22:02)
[2021-05-29] MEDS: LEVOTHYROXINE NA 50 MCG TABLET (FP) PO SCH (06:06)
[2021-05-29 08:15] LABS: HEMATOCRIT 23.4 % (32.4-45.2); HEMOGLOBIN 7.9 GM/dL (10.7-15.3); MCH 30.8 pg (25.7-33.7); MCHC 33.6 g/dl (32.0-36.0); MEAN CELL VOLUME 91.7 fl (80-96); MEAN PLT VOLUME 7.6 fl (7.5-11.1); PLATELET COUNT 61 10^3/uL (134-434); RBC 2.55 M/mm3 (3.60-5.2); RDW 17.1 % (11.6-15.6); WHITE BLOOD COUNT 8.9 K/mm3 (4.0-10.0)
[2021-05-29 08:24] LABS: ALBUMIN 2.5 g/dl (3.4-5.0); CALCIUM 7.1 mg/dL (8.5-10.1)
[2021-05-29 08:25] LABS: BLOOD UREA NITROGEN 37.8 mg/dL (7-18); MAGNESIUM 1.7 mg/dL (1.8-2.4)
[2021-05-29 08:28] LABS: CREATININE 1.5 mg/dL (0.55-1.3); PHOSPHOROUS 2.8 mg/dL (2.5-4.9)
[2021-05-29 08:29] LABS: BILIRUBIN,TOTAL 0.6 mg/dL (0.2-1); TOT PROT 4.7 g/dl (6.4-8.2)
[2021-05-29] MEDS ORDERED: cefTRIAXone SODIUM 1 GM VIAL ONE (09:28)
[2021-05-29] MEDS ORDERED: PT OWN MED DRAWER 7, Y5N ONE (09:28)
[2021-05-29] MEDS ORDERED: DEXTROSE 5%-WATER - 50 ML IVPB ONE (09:28)
[2021-05-29] MEDS: FERROUS SO4 325 MG TABLET (FP) PO SCH (09:31)
[2021-05-29] MEDS: ALPRAZolam 0.25 MG TABLET PO SCH (09:31)
[2021-05-29] MEDS: CEFTRIAXONE 1 GM in DEXTROSE 5%-WATER - 50 ML IVPB SCH (09:31)
[2021-05-29] MEDS: ASCORBIC ACID 500 MG TABLET (FP) PO SCH (09:31)
[2021-05-29] MEDS: MAGNESIUM OXIDE 400 MG TABLET (FP) PO SCH (09:31)
[2021-05-29] MEDS: LORATADINE 10 MG TABLET PO SCH (09:31)
[2021-05-29] MEDS: SODIUM ZIRCONIUM CYCLOSILICATE (LOKELMA) 10 GM PACKET PO SCH ×2 (09:32→22:01)
[2021-05-29] MEDS: SOLIFENACIN SUCCINATE 5 MG TAB PO SCH (09:32)
[2021-05-29] MEDS: AMMONIUM LACTATE 12% LOTION 225 GM BOTTLE TP SCH (09:34)
[2021-05-29] MEDS: MICONAZOLE NITRATE 14 GM/TUBE TUBE TP SCH ×2 (09:35→22:04)
[2021-05-29 09:57] LABS: ANISOCYTOSIS 1+; MACROCYTOSIS 0; OVALOCYTE 1+; PLATELET ESTIMATE DECREASED
[2021-05-29] MEDS ORDERED: MINERAL OIL ENEMA 133 ML ENEMA RC ONE (11:05)
[2021-05-29] MEDS ORDERED: SODIUM CHLORIDE 0.45% 1,000 ML IV SCH (12:50)
[2021-05-29] MEDS: MELATONIN 5 MG TABLETS PO SCH (22:02)
[2021-05-29] MEDS ORDERED: guaiFENesin 600 MG TABLET.ER (FP) PO ONE (23:30)
[2021-05-30] MEDS: SODIUM BICARBONATE 650 MG TABLET PO SCH ×3 (06:09→22:59)
[2021-05-30] MEDS: LEVOTHYROXINE NA 50 MCG TABLET (FP) PO SCH (06:09)
[2021-05-30 08:31] LABS: HEMATOCRIT 23.4 % (32.4-45.2); HEMOGLOBIN 7.9 GM/dL (10.7-15.3); MCH 30.8 pg (25.7-33.7); MCHC 33.6 g/dl (32.0-36.0); MEAN CELL VOLUME 91.6 fl (80-96); PLATELET COUNT 60 10^3/uL (134-434); RBC 2.55 M/mm3 (3.60-5.2); RDW 16.9 % (11.6-15.6)
[2021-05-30 08:40] LABS: CHLORIDE 109 mmol/L (98-107); SODIUM 138 mmol/L (136-145)
[2021-05-30 08:45] LABS: ALBUMIN 2.5 g/dl (3.4-5.0); ANION GAP 6 MMOL/L (8-16); CO2 23 mmol/L (21-32); GLUCOSE,RANDOM 68 mg/dL (74-106)
[2021-05-30 08:47] LABS: MAGNESIUM 1.3 mg/dL (1.8-2.4)
[2021-05-30 08:48] LABS: CREATININE 1.5 mg/dL (0.55-1.3); PHOSPHOROUS 2.4 mg/dL (2.5-4.9); SGOT/AST 12 U/L (15-37); SGPT/ALT 9 U/L (13-61)
[2021-05-30 08:49] LABS: BILIRUBIN,TOTAL 0.7 mg/dL (0.2-1); TOT PROT 4.7 g/dl (6.4-8.2)
[2021-05-30 08:50] LABS: ALK PHOS 42 U/L (45-117)
[2021-05-30 09:07] LABS: CALCIUM 6.9 mg/dL (8.5-10.1)
[2021-05-30] MEDS ORDERED: guaiFENesin 600 MG TABLET.ER (FP) PO SCH (10:00)
[2021-05-30] MEDS ORDERED: PT OWN MED DRAWER 7, Y5N ONE ×3 (10:04→22:57)
[2021-05-30] MEDS ORDERED: cefTRIAXone SODIUM 1 GM VIAL ONE (10:04)
[2021-05-30] MEDS ORDERED: DEXTROSE 5%-WATER - 50 ML IVPB ONE (10:04)
[2021-05-30] MEDS: ASCORBIC ACID 500 MG TABLET (FP) PO SCH (10:11)
[2021-05-30] MEDS: ALPRAZolam 0.25 MG TABLET PO SCH (10:11)
[2021-05-30] MEDS: CEFTRIAXONE 1 GM in DEXTROSE 5%-WATER - 50 ML IVPB SCH (10:11)
[2021-05-30] MEDS: MAGNESIUM OXIDE 400 MG TABLET (FP) PO SCH (10:12)
[2021-05-30] MEDS: LORATADINE 10 MG TABLET PO SCH (10:12)
[2021-05-30] MEDS: SODIUM ZIRCONIUM CYCLOSILICATE (LOKELMA) 10 GM PACKET PO SCH (10:12)
[2021-05-30] MEDS: SOLIFENACIN SUCCINATE 5 MG TAB PO SCH (10:12)
[2021-05-30] MEDS: FERROUS SO4 325 MG TABLET (FP) PO SCH (10:12)
[2021-05-30 10:30] LABS: ANISOCYTOSIS 0; MACROCYTOSIS 0; OVALOCYTE 1+; PLATELET ESTIMATE DECREASED; ROULEAU 2+
[2021-05-30] MEDS: MICONAZOLE NITRATE 14 GM/TUBE TUBE TP SCH ×2 (13:44→23:00)
[2021-05-30] MEDS: AMMONIUM LACTATE 12% LOTION 225 GM BOTTLE TP SCH (13:44)
[2021-05-30] MEDS: MELATONIN 5 MG TABLETS PO SCH (23:00)
[2021-05-31] MEDS: SODIUM ZIRCONIUM CYCLOSILICATE (LOKELMA) 10 GM PACKET PO SCH ×3 (01:04→23:32)
[2021-05-31] MEDS: SODIUM BICARBONATE 650 MG TABLET PO SCH ×3 (05:02→21:29)
[2021-05-31] MEDS: LEVOTHYROXINE NA 50 MCG TABLET (FP) PO SCH (06:53)
[2021-05-31 08:23] LABS: CALCIUM 7.1 mg/dL (8.5-10.1); CHLORIDE 112 mmol/L (98-107); CO2 20 mmol/L (21-32); CREATININE 1.7 mg/dL (0.55-1.3); GLUCOSE,RANDOM 71 mg/dL (74-106); MAGNESIUM 1.4 mg/dL (1.8-2.4); SODIUM 140 mmol/L (136-145)
[2021-05-31 08:28] LABS: HEMATOCRIT 22.1 % (32.4-45.2); HEMOGLOBIN 7.4 GM/dL (10.7-15.3); MCH 30.8 pg (25.7-33.7); MCHC 33.4 g/dl (32.0-36.0); MEAN CELL VOLUME 92.2 fl (80-96); MEAN PLT VOLUME 7.7 fl (7.5-11.1); PLATELET COUNT 60 10^3/uL (134-434); RDW 17.2 % (11.6-15.6); WHITE BLOOD COUNT 7.5 K/mm3 (4.0-10.0)
[2021-05-31] MEDS ORDERED: cefTRIAXone SODIUM 1 GM VIAL ONE (09:20)
[2021-05-31] MEDS ORDERED: PT OWN MED DRAWER 7, Y5N ONE ×2 (09:20→23:30)
[2021-05-31] MEDS ORDERED: DEXTROSE 5%-WATER - 50 ML IVPB ONE (09:21)
[2021-05-31] MEDS: SOLIFENACIN SUCCINATE 5 MG TAB PO SCH (09:25)
[2021-05-31] MEDS: LORATADINE 10 MG TABLET PO SCH (09:25)
[2021-05-31] MEDS: FERROUS SO4 325 MG TABLET (FP) PO SCH (09:25)
[2021-05-31] MEDS: MAGNESIUM OXIDE 400 MG TABLET (FP) PO SCH (09:25)
[2021-05-31] MEDS: ASCORBIC ACID 500 MG TABLET (FP) PO SCH (09:25)
[2021-05-31] MEDS: ALPRAZolam 0.25 MG TABLET PO SCH (09:26)
[2021-05-31] MEDS: MICONAZOLE NITRATE 14 GM/TUBE TUBE TP SCH ×2 (09:26→21:29)
[2021-05-31] MEDS: AMMONIUM LACTATE 12% LOTION 225 GM BOTTLE TP SCH (09:27)
[2021-05-31] MEDS: CEFTRIAXONE 1 GM in DEXTROSE 5%-WATER - 50 ML IVPB SCH (09:28)
[2021-05-31 11:10] LABS: ANISOCYTOSIS 0; HELMET CELLS 0; HOWELL-JOLLY BODIES 0; MACROCYTOSIS 0; OVALOCYTE 0; PLATELET ESTIMATE DECREASED; ROULEAU 0; SICKELED CELLS 0; TARGET CELLS 0; TEAR DROP CELLS 0; TOXIC GRANULATION 0
[2021-05-31] MEDS: guaiFENesin 600 MG TABLET.ER (FP) PO SCH ×2 (14:10→21:29)
[2021-05-31] MEDS: MELATONIN 5 MG TABLETS PO SCH (21:29)
[2021-06-01] MEDS: SODIUM BICARBONATE 650 MG TABLET PO SCH ×3 (05:23→21:26)
[2021-06-01] MEDS: LEVOTHYROXINE NA 50 MCG TABLET (FP) PO SCH (06:46)
[2021-06-01] MEDS ORDERED: MINERAL OIL ENEMA 133 ML ENEMA RC ONE (07:00)
[2021-06-01 07:53] LABS: BASO % 0.4 % (0-2.0); HEMATOCRIT 22.7 % (32.4-45.2); HEMOGLOBIN 7.6 GM/dL (10.7-15.3); LYMPH % 10.9 % (8-40); MCH 30.5 pg (25.7-33.7); MCHC 33.6 g/dl (32.0-36.0); MEAN CELL VOLUME 90.9 fl (80-96); MEAN PLT VOLUME 7.7 fl (7.5-11.1); MONO % 65.1 % (3.8-10.2); NEUT % 21.6 % (42.8-82.8); PLATELET COUNT 59 10^3/uL (134-434); RBC 2.49 M/mm3 (3.60-5.2); RDW 17.1 % (11.6-15.6); WHITE BLOOD COUNT 7.8 K/mm3 (4.0-10.0)
[2021-06-01 08:17] LABS: ALBUMIN 2.5 g/dl (3.4-5.0); BLOOD UREA NITROGEN 33.7 mg/dL (7-18); CALCIUM 7.1 mg/dL (8.5-10.1)
[2021-06-01 08:21] LABS: CREATININE 1.5 mg/dL (0.55-1.3)
[2021-06-01 08:23] LABS: BILIRUBIN,TOTAL 0.4 mg/dL (0.2-1); TOT PROT 4.6 g/dl (6.4-8.2)
[2021-06-01] MEDS ORDERED: PT OWN MED DRAWER 7, Y5N ONE (09:37)
[2021-06-01] MEDS ORDERED: DEXTROSE 5%-WATER - 50 ML IVPB ONE (09:37)
[2021-06-01] MEDS ORDERED: cefTRIAXone SODIUM 1 GM VIAL ONE (09:37)
[2021-06-01] MEDS: LORATADINE 10 MG TABLET PO SCH (09:44)
[2021-06-01] MEDS: CEFTRIAXONE 1 GM in DEXTROSE 5%-WATER - 50 ML IVPB SCH (09:44)
[2021-06-01] MEDS: ALPRAZolam 0.25 MG TABLET PO SCH (09:45)
[2021-06-01] MEDS: MAGNESIUM OXIDE 400 MG TABLET (FP) PO SCH (09:46)
[2021-06-01] MEDS: SOLIFENACIN SUCCINATE 5 MG TAB PO SCH (09:46)
[2021-06-01] MEDS: FERROUS SO4 325 MG TABLET (FP) PO SCH (10:01)
[2021-06-01] MEDS: guaiFENesin 600 MG TABLET.ER (FP) PO SCH ×2 (10:02→21:26)
[2021-06-01] MEDS: MICONAZOLE NITRATE 14 GM/TUBE TUBE TP SCH ×2 (10:02→21:26)
[2021-06-01] MEDS: AMMONIUM LACTATE 12% LOTION 225 GM BOTTLE TP SCH (10:03)
[2021-06-01] MEDS: SODIUM ZIRCONIUM CYCLOSILICATE (LOKELMA) 10 GM PACKET PO SCH ×2 (10:03→22:22)
[2021-06-01] MEDS: MULTIVITAMINS (DAILY MVI) TABLET (FP) PO SCH (10:03)
[2021-06-01] MEDS: ASCORBIC ACID 500 MG TABLET (FP) PO SCH (10:04)
[2021-06-01 10:16] LABS: ANISOCYTOSIS 0; MACROCYTOSIS 0; PLATELET ESTIMATE DECREASED
[2021-06-01] MEDS: MELATONIN 5 MG TABLETS PO SCH (21:26)
[2021-06-01] MEDS ORDERED: HYDROCORTISONE ACETATE 25 MG/SUPP.RECT RC SCH (22:00)
[2021-06-02] MEDS: LEVOTHYROXINE NA 50 MCG TABLET (FP) PO SCH (06:25)
[2021-06-02] MEDS: SODIUM BICARBONATE 650 MG TABLET PO SCH ×2 (06:25→14:36)
[2021-06-02 09:30] LABS: HEMATOCRIT 23.4 % (32.4-45.2); HEMOGLOBIN 7.9 GM/dL (10.7-15.3); MCH 30.9 pg (25.7-33.7); MCHC 33.6 g/dl (32.0-36.0); MEAN CELL VOLUME 91.9 fl (80-96); MEAN PLT VOLUME 8.2 fl (7.5-11.1); PLATELET COUNT 69 10^3/uL (134-434); RBC 2.55 M/mm3 (3.60-5.2); RDW 16.8 % (11.6-15.6); WHITE BLOOD COUNT 10.7 K/mm3 (4.0-10.0)
[2021-06-02] MEDS ORDERED: DEXTROSE 5%-WATER - 50 ML IVPB ONE (09:36)
[2021-06-02] MEDS ORDERED: cefTRIAXone SODIUM 1 GM VIAL ONE (09:36)
[2021-06-02 09:50] LABS: ALBUMIN 2.6 g/dl (3.4-5.0); BLOOD UREA NITROGEN 29.4 mg/dL (7-18); CALCIUM 7.5 mg/dL (8.5-10.1); MAGNESIUM 1.6 mg/dL (1.8-2.4)
[2021-06-02 09:53] LABS: CREATININE 1.5 mg/dL (0.55-1.3); PHOSPHOROUS 2.1 mg/dL (2.5-4.9)
[2021-06-02 09:55] LABS: BILIRUBIN,TOTAL 0.4 mg/dL (0.2-1); TOT PROT 4.9 g/dl (6.4-8.2)
[2021-06-02] MEDS: guaiFENesin 600 MG TABLET.ER (FP) PO SCH (09:57)
[2021-06-02] MEDS: FERROUS SO4 325 MG TABLET (FP) PO SCH (09:57)
[2021-06-02] MEDS: ALPRAZolam 0.25 MG TABLET PO SCH (09:57)
[2021-06-02] MEDS: ASCORBIC ACID 500 MG TABLET (FP) PO SCH (09:58)
[2021-06-02] MEDS: MULTIVITAMINS (DAILY MVI) TABLET (FP) PO SCH (09:58)
[2021-06-02] MEDS: CEFTRIAXONE 1 GM in DEXTROSE 5%-WATER - 50 ML IVPB SCH (09:58)
[2021-06-02] MEDS: MAGNESIUM OXIDE 400 MG TABLET (FP) PO SCH (09:58)
[2021-06-02] MEDS: LORATADINE 10 MG TABLET PO SCH (09:58)
[2021-06-02] MEDS: SODIUM ZIRCONIUM CYCLOSILICATE (LOKELMA) 10 GM PACKET PO SCH (09:59)
[2021-06-02] MEDS: AMMONIUM LACTATE 12% LOTION 225 GM BOTTLE TP SCH (10:01)
[2021-06-02 10:05] LABS: ANISOCYTOSIS 0; HELMET CELLS 0; HOWELL-JOLLY BODIES 0; MACROCYTOSIS 0; OVALOCYTE 0; PLATELET ESTIMATE DECREASED; ROULEAU 0; SICKELED CELLS 0; TARGET CELLS 0; TEAR DROP CELLS 0; TOXIC GRANULATION 0
[2021-06-02] MEDS: SOLIFENACIN SUCCINATE 5 MG TAB PO SCH (10:06)
[2021-06-02] MEDS: MICONAZOLE NITRATE 14 GM/TUBE TUBE TP SCH (10:07)
[2021-06-02 14:37] VITALS: BP 100/61; PULSE 84; TEMP 97.5
== END 2021-06-02 17:26 | DRG 683 ==
LOC: FER 11:10 → J2W 05-24 03:26 → J7W 05-26 20:24
PROVIDERS: ADMIT Internal Medicine
PROC: 0DJD8ZZ Inspection of Lower Intestinal Tract, Via Natural or Artificial Opening Endoscopic (ICD-10-PCS; principal; 2021-06-01 12:00)
DX: N17.9 Acute kidney failure, unspecified (principal); K62.5 Hemorrhage of anus and rectum; N39.0 Urinary tract infection, site not specified; C85.90 Non-Hodgkin lymphoma, unspecified, unspecified site; E87.2 Acidosis; E87.1 Hypo-osmolality and hyponatremia; C91.40 Hairy cell leukemia not having achieved remission; E87.5 Hyperkalemia; B96.1 Klebsiella pneumoniae [K. pneumoniae] as the cause of diseases classified elsewhere; K64.8 Other hemorrhoids; G47.00 Insomnia, unspecified; E03.9 Hypothyroidism, unspecified; E86.0 Dehydration; M81.0 Age-related osteoporosis without current pathological fracture; I44.0 Atrioventricular block, first degree; R16.1 Splenomegaly, not elsewhere classified; I10 Essential (primary) hypertension; F41.9 Anxiety disorder, unspecified; N31.9 Neuromuscular dysfunction of bladder, unspecified; G25.0 Essential tremor; I73.9 Peripheral vascular disease, unspecified; K59.00 Constipation, unspecified; Z85.43 Personal history of malignant neoplasm of ovary; Z93.3 Colostomy status; Z86.19 Personal history of other infectious and parasitic diseases; Z93.2 Ileostomy status
CPT/HCPCS: 36415; 71045-TC-FY; 74176-TC; 76775-TC; 76856-TC; 80048; 80053; 81003; 81015; 82248; 82272; 82550; 82784; 83516; 83520; 83615; 83735; 83883; 84100; 84155; 84165; 84484; 85025; 85027; 85610; 85730; 86038; 86160; 86256; 86850; 86900; 86901; 87040; 87086; 87186; 87324; 87449; 93005; 94010; 97116-GP; 97161-GP; 99285-25; C9803; J0131; U0003; U0005

== ENCOUNTER 2021-07-01 15:51 | Emergency (ER) | payer OTHER ==
[2021-07-01] MEDS ORDERED: SODIUM CHLORIDE 0.9% 1000 ML INFUS.BAG IV ONE (15:58)
[2021-07-01 17:14] VITALS: BP 152/61; PULSE 64; TEMP 97.7; BMI 21.6
[2021-07-01 17:22] LABS: HEMATOCRIT 27.6 % (32.4-45.2); MCH 30.6 pg (25.7-33.7); MCHC 32.8 g/dl (32.0-36.0); MEAN CELL VOLUME 93.3 fl (80-96); MEAN PLT VOLUME 7.8 fl (7.5-11.1); PLATELET COUNT 103 10^3/uL (134-434); RBC 2.96 M/mm3 (3.60-5.2); RDW 16.1 % (11.6-15.6); WHITE BLOOD COUNT 15.1 K/mm3 (4.0-10.8)
[2021-07-01 17:41] LABS: ALBUMIN 3.6 g/dl (3.4-5.0); BILIRUBIN,TOTAL 0.5 mg/dl (0.2-1); CALCIUM 7.9 mg/dl (8.5-10); CREATININE 2.1 mg/dl (0.55-1.3); MAGNESIUM 1.9 mg/dL (1.8-2.4)
[2021-07-01 18:33] LABS: PLATELET ESTIMATE DECREASED
== END 2021-07-01 19:08 | disposition home or self-care (01) ==
LOC: FER 15:51
DX: E87.6 Hypokalemia (principal); N19 Unspecified kidney failure; C85.90 Non-Hodgkin lymphoma, unspecified, unspecified site
CPT/HCPCS: 36415; 71045-TC-FY; 80053; 83735; 85025; 93005; 99284-25; C9803; U0003; U0005

== ENCOUNTER 2021-08-31 11:09 | Emergency (ER) | payer OTHER ==
[2021-08-31 11:20] VITALS: BP 187/73; PULSE 72; TEMP 97.3; BMI 24.1
[2021-08-31] MEDS ORDERED: ACETAMINOPHEN 500 MG TABLET (FP) PO ONE ×2 (11:24→17:09)
[2021-08-31] MEDS ORDERED: LIDOCAINE 5% TOPICAL PATCH TP ONE (11:24)
[2021-08-31] MEDS ORDERED: ACETAMINOPHEN 500 MG TABLET (FP) ONE (11:29)
[2021-08-31] MEDS ORDERED: LIDOCAINE 5% TOPICAL PATCH ONE (11:29)
[2021-08-31] MEDS ORDERED: LIDOCAINE PATCH REMOVAL MC SCH (22:00)
== END 2021-08-31 17:27 | disposition home or self-care (01) ==
LOC: FER 11:09
DX: S32.030A Wedge compression fracture of third lumbar vertebra, initial encounter for closed fracture (principal); Y99.9 Unspecified external cause status
CPT/HCPCS: 72100-TC-FY; 72131-TC; 72148-TC; 73562-TC-LT-FY; 99285-25

== ENCOUNTER 2022-01-22 11:23 | Emergency (ER) | payer OTHER ==
[2022-01-22 11:42] VITALS: BP 147/56; PULSE 74; TEMP 98.2; BMI 20.2
[2022-01-22] MEDS ORDERED: ACETAMINOPHEN 325 MG TABLET (FP) ONE (11:54)
[2022-01-22] MEDS ORDERED: ACETAMINOPHEN 325 MG TABLET (FP) PO ONE (11:55)
[2022-01-22 14:07] LABS: EPITHELIAL CELLS FEW /hpf
[2022-01-22] MEDS ORDERED: CEPHALEXIN MONOHYDRATE 500 MG CAPSULE (UD) PO ONE (14:26)
[2022-01-22] MEDS ORDERED: CEPHALEXIN MONOHYDRATE 500 MG CAPSULE (UD) ONE (14:29)
== END 2022-01-22 15:12 | disposition home or self-care (01) ==
LOC: FER 11:23
DX: N39.0 Urinary tract infection, site not specified (principal); M25.551 Pain in right hip
CPT/HCPCS: 72170-TC-FY; 73130-TC-LT-FY; 81003; 81015; 87086; 87186; 99284-25

== ENCOUNTER 2022-04-19 09:54 | Emergency (ER) | payer OTHER ==
[2022-04-19 10:12] VITALS: BP 140/64; PULSE 74; RESP 20; TEMP 97.9; BMI 19.5
[2022-04-19] MEDS ORDERED: ACETAMINOPHEN 325 MG TABLET (FP) PO ONE (10:35)
[2022-04-19] MEDS ORDERED: ACETAMINOPHEN 325 MG TABLET (FP) ONE (10:37)
== END 2022-04-19 11:02 | disposition home or self-care (01) ==
LOC: FER 09:54
DX: M25.561 Pain in right knee (principal)
CPT/HCPCS: 99283-25

== ENCOUNTER 2022-04-22 10:58 | Emergency (ER) | payer OTHER ==
[2022-04-22 11:18] VITALS: RESP 18; TEMP 98.5; BMI 19.5
[2022-04-22 12:06] LABS: HEMATOCRIT 25.9 % (32.4-45.2); HEMOGLOBIN 8.9 G/dL (10.7-15.3); MCH 32.1 pg (25.7-33.7); MCHC 34.2 g/dl (32.0-36.0); RBC 2.76 10^6/uL (3.60-5.2); RDW 15.8 % (11.6-15.6); WHITE BLOOD COUNT 18.3 10^3/uL (4.0-10.8)
[2022-04-22 12:12] LABS: INR 1.03 (0.83-1.09); PROTHROMBIN TIME (PATIENT) 11.8 SEC (9.7-13.0)
[2022-04-22 12:19] LABS: ALBUMIN 3.5 g/dl (3.4-5.0); BILIRUBIN,TOTAL 0.7 mg/dl (0.2-1); CALCIUM 9.3 mg/dl (8.5-10); CREATININE 2.2 mg/dl (0.55-1.3); TOT PROT 5.7 g/dl (6.4-8.2)
[2022-04-22 12:20] LABS: ACTIVATED PTT 29.6 SECONDS (25.2-36.5)
[2022-04-22] MEDS ORDERED: IBUPROFEN 400 MG TABLET (FP) PO ONE (13:12)
[2022-04-22 15:45] VITALS: BP 125/68; PULSE 62
[2022-04-22 15:57] LABS: ANISOCYTOSIS 1+
[2022-04-22 16:02] LABS: PLATELET ESTIMATE DECREASED
== END 2022-04-22 15:45 | disposition home or self-care (01) ==
LOC: FER 10:58
DX: N75.0 Cyst of Bartholin's gland (principal)
CPT/HCPCS: 36415; 73560-TC-RT-FY; 73610-TC-RT-FY; 73630-TC-RT-FY; 80053; 85025; 85379; 85610; 85730; 93971-TC; 99284-25

== ENCOUNTER 2023-01-01 00:55 | Inpatient (IN) | payer OTHER ==
[2023-01-01 02:33] LABS: HEMATOCRIT 30.2 % (32.4-45.2); HEMOGLOBIN 9.6 GM/dL (10.7-15.3); MCH 28.3 pg (25.7-33.7); MEAN CELL VOLUME 88.5 fl (80-96); MEAN PLT VOLUME 7.4 fl (7.5-11.1); PLATELET COUNT 87 10^3/uL (134-434); RBC 3.41 M/mm3 (3.60-5.2); RDW 16.5 % (11.6-15.6)
[2023-01-01 02:41] LABS: WHITE BLOOD COUNT 42.4 K/mm3 (4.0-10.0)
[2023-01-01 02:56] LABS: ALBUMIN 3.4 g/dl (3.4-5.0); BLOOD UREA NITROGEN 40.7 mg/dL (7-18)
[2023-01-01 02:59] LABS: CREATININE 1.6 mg/dL (0.55-1.3)
[2023-01-01 03:00] LABS: BILIRUBIN,TOTAL 0.4 mg/dL (0.2-1); TOT PROT 5.7 g/dl (6.4-8.2)
[2023-01-01 03:13] LABS: INR 1.14 (0.83-1.09); PROTHROMBIN TIME (PATIENT) 13.2 SEC (9.7-13.0)
[2023-01-01 03:16] LABS: ACTIVATED PTT 28.4 SECONDS (25.2-36.5)
[2023-01-01 03:30] LABS: ANISOCYTOSIS 1+; MACROCYTOSIS 0; OVALOCYTE 1+; PLATELET ESTIMATE DECREASED
[2023-01-01] MEDS ORDERED: ONDANSETRON 4 MG/2 ML VIAL ONE (05:29)
[2023-01-01] MEDS ORDERED: ONDANSETRON 4 MG/2 ML VIAL IVPUSH ONE (05:29)
[2023-01-01] MEDS ORDERED: SODIUM CHLORIDE 0.9% 500 ML INFUS.BAG IV ONE (06:11)
[2023-01-01] MEDS ORDERED: LIDOCAINE HCL 2% JELLY 6 ML TP ONE (06:30)
[2023-01-01 08:41] LABS: VENOUS O2 SATURATION 99.2 % (70-80); VENOUS PCO2 30.8 mmHg (38-52); VENOUS PH 7.404 (7.310-7.410)
[2023-01-01] MEDS ORDERED: ONDANSETRON 4 MG/2 ML VIAL IVPUSH PRN (10:07)
[2023-01-01 12:01] VITALS: RESP 18; BMI 22.2
[2023-01-01] MEDS: DEXTROSE 5%-0.45% SALINE 1,000 ML IV SCH (14:51)
[2023-01-01] MEDS: HEPARIN NA (PORCINE) 5,000 UNITS/ML 1ML VIAL SQ SCH ×2 (15:02→21:44)
[2023-01-01] MEDS: ACETAMINOPHEN 1000 MG/100 ML BAG IVPB PRN (18:17)
[2023-01-02] MEDS: HEPARIN NA (PORCINE) 5,000 UNITS/ML 1ML VIAL SQ SCH ×3 (06:09→23:25)
[2023-01-02 08:39] LABS: HEMATOCRIT 26.7 % (32.4-45.2); HEMOGLOBIN 8.9 GM/dL (10.7-15.3); MCH 29.3 pg (25.7-33.7); MCHC 33.2 g/dl (32.0-36.0); MEAN CELL VOLUME 88.1 fl (80-96); MEAN PLT VOLUME 7.7 fl (7.5-11.1); PLATELET COUNT 74 10^3/uL (134-434); RBC 3.03 M/mm3 (3.60-5.2); RDW 16.8 % (11.6-15.6); WHITE BLOOD COUNT 24.5 K/mm3 (4.0-10.0)
[2023-01-02 09:03] LABS: POTASSIUM 4.1 mmol/L (3.5-5.1)
[2023-01-02 09:07] LABS: BLOOD UREA NITROGEN 33.5 mg/dL (7-18); MAGNESIUM 1.9 mg/dL (1.8-2.4)
[2023-01-02 09:08] LABS: CALCIUM 7.4 mg/dL (8.5-10.1)
[2023-01-02 09:10] LABS: CREATININE 1.4 mg/dL (0.55-1.3)
[2023-01-02 09:12] LABS: BILIRUBIN,TOTAL 0.4 mg/dL (0.2-1)
[2023-01-02] MEDS: ACETAMINOPHEN 1000 MG/100 ML BAG IVPB PRN (09:30)
[2023-01-02] MEDS: DEXTROSE 5%-0.45% SALINE 1,000 ML IV SCH ×3 (10:55→23:25)
[2023-01-03] MEDS: HEPARIN NA (PORCINE) 5,000 UNITS/ML 1ML VIAL SQ SCH ×3 (07:26→21:25)
[2023-01-03 09:50] LABS: ANISOCYTOSIS 0; HELMET CELLS 0; HOWELL-JOLLY BODIES 0; MACROCYTOSIS 0; OVALOCYTE 0; ROULEAU 0; SICKELED CELLS 0; TARGET CELLS 0; TEAR DROP CELLS 0; TOXIC GRANULATION 0
[2023-01-03] MEDS: DEXTROSE 5%-0.45% SALINE 1,000 ML IV SCH (11:42)
[2023-01-03] MEDS ORDERED: ALPRAZolam 0.25 MG TABLET PO PRN (12:10)
[2023-01-03] MEDS ORDERED: ASPIRIN 81 MG CHEWABLE TABLETS PO SCH (12:15)
[2023-01-03] MEDS: ALLOPURINOL 100 MG TABLET (FP) PO SCH (12:51)
[2023-01-03] MEDS: LEVOTHYROXINE NA 50 MCG TABLET (FP) PO SCH (12:52)
[2023-01-03] MEDS ORDERED: SODIUM BICARBONATE 325 MG TABLET PO SCH (14:00)
[2023-01-03] MEDS ORDERED: ACETAMINOPHEN 325 MG TABLET (FP) PO PRN (18:14)
[2023-01-03] MEDS: MAGNESIUM OXIDE 400 MG TABLET (FP) PO SCH (18:48)
[2023-01-03] MEDS: FOLIC ACID 1 MG TABLET (FP) PO SCH (18:48)
[2023-01-03] MEDS: amLODIPine BESYLATE 5 MG TABLET (FP) PO SCH (18:49)
[2023-01-03] MEDS: FERROUS SO4 325 MG TABLET (FP) PO SCH (18:49)
[2023-01-03] MEDS: CYANOCOBALAMIN (VITAMIN B-12) 100 MCG TABLET PO SCH (19:15)
[2023-01-03] MEDS: SODIUM ZIRCONIUM CYCLOSILICATE (LOKELMA) 5 GM PACKET PO SCH (21:24)
[2023-01-03] MEDS: SODIUM BICARBONATE 650 MG TABLET PO SCH (21:24)
[2023-01-03] MEDS: LORATADINE 10 MG TABLET PO SCH (21:25)
[2023-01-03] MEDS: ALPRAZolam 0.25 MG TABLET PO SCH (21:25)
[2023-01-03] MEDS ORDERED: propRANOLol HCL 10 MG TABLET PO SCH (22:00)
[2023-01-04] MEDS: SODIUM BICARBONATE 650 MG TABLET PO SCH ×3 (05:48→21:47)
[2023-01-04] MEDS: HEPARIN NA (PORCINE) 5,000 UNITS/ML 1ML VIAL SQ SCH ×3 (05:49→21:47)
[2023-01-04] MEDS: LEVOTHYROXINE NA 50 MCG TABLET (FP) PO SCH (06:09)
[2023-01-04] MEDS: FERROUS SO4 325 MG TABLET (FP) PO SCH (09:24)
[2023-01-04] MEDS: ALLOPURINOL 100 MG TABLET (FP) PO SCH (09:24)
[2023-01-04] MEDS: CYANOCOBALAMIN (VITAMIN B-12) 100 MCG TABLET PO SCH (09:24)
[2023-01-04] MEDS: MAGNESIUM OXIDE 400 MG TABLET (FP) PO SCH (09:24)
[2023-01-04] MEDS: FOLIC ACID 1 MG TABLET (FP) PO SCH (09:24)
[2023-01-04] MEDS: ALPRAZolam 0.25 MG TABLET PO SCH ×2 (09:24→21:47)
[2023-01-04] MEDS: amLODIPine BESYLATE 5 MG TABLET (FP) PO SCH (09:24)
[2023-01-04] MEDS ORDERED: FUROSEMIDE 20 MG TABLET (FP) PO SCH (10:00)
[2023-01-04] MEDS: SODIUM ZIRCONIUM CYCLOSILICATE (LOKELMA) 5 GM PACKET PO SCH (21:47)
[2023-01-04] MEDS: LORATADINE 10 MG TABLET PO SCH (21:47)
[2023-01-05] MEDS: HEPARIN NA (PORCINE) 5,000 UNITS/ML 1ML VIAL SQ SCH ×3 (06:42→22:03)
[2023-01-05] MEDS: LEVOTHYROXINE NA 50 MCG TABLET (FP) PO SCH (06:44)
[2023-01-05] MEDS: SODIUM BICARBONATE 650 MG TABLET PO SCH ×3 (06:44→22:02)
[2023-01-05] MEDS: FOLIC ACID 1 MG TABLET (FP) PO SCH (09:47)
[2023-01-05] MEDS: ALPRAZolam 0.25 MG TABLET PO SCH ×2 (09:47→22:02)
[2023-01-05] MEDS: amLODIPine BESYLATE 5 MG TABLET (FP) PO SCH (09:47)
[2023-01-05] MEDS: CYANOCOBALAMIN (VITAMIN B-12) 100 MCG TABLET PO SCH (09:47)
[2023-01-05] MEDS: FERROUS SO4 325 MG TABLET (FP) PO SCH (09:47)
[2023-01-05] MEDS: MAGNESIUM OXIDE 400 MG TABLET (FP) PO SCH (09:47)
[2023-01-05] MEDS: ALLOPURINOL 100 MG TABLET (FP) PO SCH (09:47)
[2023-01-05 09:57] LABS: HEMATOCRIT 25.1 % (32.4-45.2); HEMOGLOBIN 8.3 GM/dL (10.7-15.3); MCHC 33.1 g/dl (32.0-36.0); MEAN CELL VOLUME 87.8 fl (80-96); MEAN PLT VOLUME 7.9 fl (7.5-11.1); PLATELET COUNT 71 10^3/uL (134-434); RBC 2.86 M/mm3 (3.60-5.2); RDW 16.1 % (11.6-15.6); WHITE BLOOD COUNT 13.3 K/mm3 (4.0-10.0)
[2023-01-05 10:09] LABS: CALCIUM 7.3 mg/dL (8.5-10.1)
[2023-01-05 10:10] LABS: BLOOD UREA NITROGEN 19.8 mg/dL (7-18)
[2023-01-05 10:13] LABS: CREATININE 1.2 mg/dL (0.55-1.3)
[2023-01-05 10:14] LABS: BILIRUBIN,TOTAL 0.4 mg/dL (0.2-1); TOT PROT 4.9 g/dl (6.4-8.2)
[2023-01-05 11:48] LABS: ANISOCYTOSIS 0; MACROCYTOSIS 0
[2023-01-05] MEDS: DEXTROSE 5%-0.45% SALINE 1,000 ML IV SCH ×2 (13:44→13:45)
[2023-01-05] MEDS: SODIUM ZIRCONIUM CYCLOSILICATE (LOKELMA) 5 GM PACKET PO SCH (22:02)
[2023-01-05] MEDS: LORATADINE 10 MG TABLET PO SCH (22:02)
[2023-01-06] MEDS: SODIUM BICARBONATE 650 MG TABLET PO SCH (06:35)
[2023-01-06] MEDS: HEPARIN NA (PORCINE) 5,000 UNITS/ML 1ML VIAL SQ SCH (06:35)
[2023-01-06] MEDS: LEVOTHYROXINE NA 50 MCG TABLET (FP) PO SCH (06:35)
[2023-01-06 08:46] VITALS: BP 102/62; PULSE 74; TEMP 97.8
[2023-01-06] MEDS: FERROUS SO4 325 MG TABLET (FP) PO SCH (10:28)
[2023-01-06] MEDS: ALLOPURINOL 100 MG TABLET (FP) PO SCH (10:29)
[2023-01-06] MEDS: ALPRAZolam 0.25 MG TABLET PO SCH (10:29)
[2023-01-06] MEDS: CYANOCOBALAMIN (VITAMIN B-12) 100 MCG TABLET PO SCH (10:30)
[2023-01-06] MEDS: amLODIPine BESYLATE 5 MG TABLET (FP) PO SCH (10:30)
[2023-01-06] MEDS: FOLIC ACID 1 MG TABLET (FP) PO SCH (10:30)
[2023-01-06] MEDS: MAGNESIUM OXIDE 400 MG TABLET (FP) PO SCH (10:32)
== END 2023-01-06 14:58 | DRG 388 ==
LOC: JER 00:55 → JERBED 06:30 → J8W 11:04
PROVIDERS: ADMIT Internal Medicine; ATTEND Internal Medicine
PROC: 0D9670Z Drainage of Stomach with Drainage Device, Via Natural or Artificial Opening (ICD-10-PCS; principal; 2023-01-01)
DX: K56.50 Intestinal adhesions [bands], unspecified as to partial versus complete obstruction (principal); U07.1 COVID-19; C85.90 Non-Hodgkin lymphoma, unspecified, unspecified site; E03.9 Hypothyroidism, unspecified; E78.5 Hyperlipidemia, unspecified; I12.9 Hypertensive chronic kidney disease with stage 1 through stage 4 chronic kidney disease, or unspecified chronic kidney disease; N18.9 Chronic kidney disease, unspecified; F41.9 Anxiety disorder, unspecified; R16.1 Splenomegaly, not elsewhere classified; D69.6 Thrombocytopenia, unspecified; D72.829 Elevated white blood cell count, unspecified; Z93.2 Ileostomy status; Z85.43 Personal history of malignant neoplasm of ovary; Z90.49 Acquired absence of other specified parts of digestive tract; M81.0 Age-related osteoporosis without current pathological fracture
CPT/HCPCS: 0241U-QW; 36415; 71045-TC-FY; 74019-TC-FY; 74176-TC; 80053; 82550; 82553; 82803; 83605; 83735; 84443; 84484; 85025; 85610; 85730; 86850; 86900; 86901; 87040; 93005; 93010; 97116-GP; 97161-GP; 99285-25; J1644

== ENCOUNTER 2023-06-02 17:11 | Inpatient (IN) | payer OTHER ==
[2023-06-02 17:47] VITALS: BMI 21.4
[2023-06-02] MEDS ORDERED: VANCOMYCIN 1,000 MG in DEXTROSE 5%-WATER - 250 ML IVPB ONE (18:04)
[2023-06-02] MEDS ORDERED: ACETAMINOPHEN 1000 MG/100 ML BAG IVPB ONE (18:05)
[2023-06-02] MEDS ORDERED: ACETAMINOPHEN INJECTION 100 ML IVPB ONE (18:10)
[2023-06-02 18:32] LABS: BASO % 0.1 % (0-2.0); EOS % 0.6 % (0-4.5); HEMATOCRIT 23.8 % (32.4-45.2); HEMOGLOBIN 7.6 GM/dL (10.7-15.3); LYMPH % 85.3 % (8-40); MCH 29.2 pg (25.7-33.7); MCHC 31.8 g/dl (32.0-36.0); MONO % 0.9 % (3.8-10.2); NEUT % 13.1 % (42.8-82.8); PLATELET COUNT 81 10^3/uL (134-434); RBC 2.59 M/mm3 (3.60-5.2); RDW 18.6 % (11.6-15.6); WHITE BLOOD COUNT 22.3 K/mm3 (4.0-10.0)
[2023-06-02 19:01] LABS: IRON SERUM 14 ug/dL (50-175)
[2023-06-02 19:02] LABS: TOTAL IRON BINDING CAPACITY 250 ug/dL (250-450)
[2023-06-02 19:10] LABS: POTASSIUM 4.1 mmol/L (3.5-5.1)
[2023-06-02 19:12] LABS: CALCIUM 8.6 mg/dL (8.5-10.1)
[2023-06-02 19:13] LABS: ALBUMIN 3.2 g/dl (3.4-5.0); BLOOD UREA NITROGEN 58.3 mg/dL (7-18)
[2023-06-02 19:16] LABS: CREATININE 2.5 mg/dL (0.55-1.3)
[2023-06-02 19:18] LABS: BILIRUBIN,TOTAL 0.4 mg/dL (0.2-1); TOT PROT 5.3 g/dl (6.4-8.2)
[2023-06-02] MEDS ORDERED: VANCOMYCIN 1 GRAM (PRE-DOCKED) 1,000 MG/250 ML BAG IVPB ONE (20:05)
[2023-06-02] MEDS: SODIUM CHLORIDE 1,000 ML IV SCH (23:15)
[2023-06-03 00:10] LABS: INR 1.17 (0.83-1.09); PROTHROMBIN TIME (PATIENT) 13.6 SEC (9.7-13.0)
[2023-06-03 00:12] LABS: ACTIVATED PTT 30.8 SECONDS (25.2-36.5)
[2023-06-03] MEDS ORDERED: ACETAMINOPHEN 325 MG TABLET (FP) ONE ×2 (02:20→11:00)
[2023-06-03] MEDS: ACETAMINOPHEN 325 MG TABLET (FP) PO PRN ×2 (02:23→11:06)
[2023-06-03 08:29] LABS: INR 1.1 (0.83-1.09); PROTHROMBIN TIME (PATIENT) 12.7 SEC (9.7-13.0)
[2023-06-03 08:31] LABS: HEMATOCRIT 26.7 % (32.4-45.2); HEMOGLOBIN 8.6 GM/dL (10.7-15.3); MCH 29.7 pg (25.7-33.7); MCHC 32.1 g/dl (32.0-36.0); MEAN CELL VOLUME 92.5 fl (80-96); MEAN PLT VOLUME 7.3 fl (7.5-11.1); PLATELET COUNT 78 10^3/uL (134-434); RBC 2.88 M/mm3 (3.60-5.2); RDW 17.4 % (11.6-15.6); WHITE BLOOD COUNT 21.8 K/mm3 (4.0-10.0)
[2023-06-03 08:46] LABS: POTASSIUM 4.4 mmol/L (3.5-5.1)
[2023-06-03 08:52] LABS: BLOOD UREA NITROGEN 46.9 mg/dL (7-18); CALCIUM 8.1 mg/dL (8.5-10.1); MAGNESIUM 2.1 mg/dL (1.8-2.4)
[2023-06-03 08:55] LABS: PHOSPHOROUS 3.7 mg/dL (2.5-4.9)
[2023-06-03] MEDS ORDERED: MAG HYDROX/AL HYDROX/SIMETH 30 ML UNIT-DOSE CUP PO PRN (09:47)
[2023-06-03 10:28] LABS: ANISOCYTOSIS 2+; MACROCYTOSIS 1+; OVALOCYTE 1+
[2023-06-03 10:32] LABS: ANISOCYTOSIS 1+; MACROCYTOSIS 0
[2023-06-03] MEDS ORDERED: HEPARIN NA (PORCINE) 5,000 UNITS/ML 1ML VIAL ONE ×2 (11:00→21:59)
[2023-06-03] MEDS: HEPARIN NA (PORCINE) 5,000 UNITS/ML 1ML VIAL SQ SCH ×2 (11:06→22:53)
[2023-06-03] MEDS ORDERED: ALPRAZolam 0.25 MG TABLET PO PRN (11:34)
[2023-06-03] MEDS ORDERED: ACETAMINOPHEN 1000 MG/100 ML BAG IVPB PRN (12:16)
[2023-06-03] MEDS: ALLOPURINOL 100 MG TABLET (FP) PO SCH (12:56)
[2023-06-03] MEDS: FOLIC ACID 1 MG TABLET (FP) PO SCH (12:56)
[2023-06-03] MEDS: CYANOCOBALAMIN 1,000 MCG TABLET (FP) PO SCH (12:56)
[2023-06-03] MEDS: SODIUM BICARBONATE 325 MG TABLET PO SCH ×2 (12:56→22:54)
[2023-06-03] MEDS ORDERED: FERROUS SO4 325 MG TABLET (FP) ONE (13:08)
[2023-06-03] MEDS ORDERED: propRANOLol HCL 10 MG TABLET ONE ×3 (13:08→21:59)
[2023-06-03] MEDS ORDERED: MAGNESIUM OXIDE 400 MG TABLET (FP) ONE (13:08)
[2023-06-03] MEDS: propRANOLol HCL 10 MG TABLET PO SCH ×2 (13:12→22:54)
[2023-06-03] MEDS: FERROUS SO4 325 MG TABLET (FP) PO SCH (13:14)
[2023-06-03] MEDS: MAGNESIUM OXIDE 400 MG TABLET (FP) PO SCH (13:18)
[2023-06-03] MEDS ORDERED: VANCOMYCIN 1,000 MG in DEXTROSE 5%-WATER - 250 ML IVPB ONE (14:44)
[2023-06-03] MEDS ORDERED: VANCOMYCIN 1 GRAM (PRE-DOCKED) 1,000 MG/250 ML BAG IVPB ONE ×2 (15:32→16:08)
[2023-06-03] MEDS ORDERED: VANCOMYCIN/WATER FOR INJ (PEG) 1,000 MG/200 ML BAG IVPB ONE (15:45)
[2023-06-03] MEDS ORDERED: LORATADINE 10 MG TABLET ONE (21:59)
[2023-06-03] MEDS ORDERED: SODIUM ZIRCONIUM CYCLOSILICATE (LOKELMA) 10 GM PACKET PO SCH (22:00)
[2023-06-03] MEDS ORDERED: SODIUM ZIRCONIUM CYCLOSILICATE (LOKELMA) 10 GM PACKET ONE (22:21)
[2023-06-03] MEDS: LORATADINE 10 MG TABLET PO SCH (22:53)
[2023-06-03] MEDS: SODIUM CHLORIDE 1,000 ML IV SCH (22:53)
[2023-06-03] MEDS: MELATONIN 1 MG TABLET PO SCH (22:54)
[2023-06-04] MEDS: ACETAMINOPHEN 325 MG TABLET (FP) PO PRN ×2 (05:36→10:35)
[2023-06-04] MEDS: LEVOTHYROXINE NA 50 MCG TABLET (FP) PO SCH (06:46)
[2023-06-04] MEDS: SODIUM BICARBONATE 325 MG TABLET PO SCH ×3 (07:33→22:06)
[2023-06-04 08:32] LABS: HEMATOCRIT 26.8 % (32.4-45.2); HEMOGLOBIN 8.5 GM/dL (10.7-15.3); MCH 29.4 pg (25.7-33.7); MCHC 31.5 g/dl (32.0-36.0); MEAN CELL VOLUME 93.2 fl (80-96); MEAN PLT VOLUME 7.1 fl (7.5-11.1); PLATELET COUNT 81 10^3/uL (134-434); RBC 2.88 M/mm3 (3.60-5.2); RDW 17.6 % (11.6-15.6); WHITE BLOOD COUNT 20.3 K/mm3 (4.0-10.0)
[2023-06-04 08:36] LABS: POTASSIUM 4.2 mmol/L (3.5-5.1)
[2023-06-04 08:39] LABS: ALBUMIN 2.8 g/dl (3.4-5.0); CALCIUM 8.3 mg/dL (8.5-10.1)
[2023-06-04 08:42] LABS: CREATININE 1.9 mg/dL (0.55-1.3)
[2023-06-04 08:44] LABS: BILIRUBIN,TOTAL 0.4 mg/dL (0.2-1); TOT PROT 4.9 g/dl (6.4-8.2)
[2023-06-04 08:58] LABS: ANISOCYTOSIS 2+; MACROCYTOSIS 1+; OVALOCYTE 1+
[2023-06-04] MEDS: CYANOCOBALAMIN 1,000 MCG TABLET (FP) PO SCH (09:30)
[2023-06-04] MEDS: FOLIC ACID 1 MG TABLET (FP) PO SCH (09:30)
[2023-06-04] MEDS: propRANOLol HCL 10 MG TABLET PO SCH ×2 (09:30→22:05)
[2023-06-04] MEDS: ALLOPURINOL 100 MG TABLET (FP) PO SCH (09:30)
[2023-06-04] MEDS: MAGNESIUM OXIDE 400 MG TABLET (FP) PO SCH (09:30)
[2023-06-04] MEDS: FERROUS SO4 325 MG TABLET (FP) PO SCH (09:30)
[2023-06-04] MEDS: HEPARIN NA (PORCINE) 5,000 UNITS/ML 1ML VIAL SQ SCH ×2 (09:30→22:05)
[2023-06-04] MEDS: VANCOMYCIN/WATER FOR INJ (PEG) 1,000 MG/200 ML BAG IVPB SCH (20:29)
[2023-06-04] MEDS: LORATADINE 10 MG TABLET PO SCH (22:05)
[2023-06-04] MEDS: MELATONIN 1 MG TABLET PO SCH (23:14)
[2023-06-05] MEDS: LEVOTHYROXINE NA 50 MCG TABLET (FP) PO SCH (06:35)
[2023-06-05] MEDS: SODIUM BICARBONATE 325 MG TABLET PO SCH ×3 (06:35→21:31)
[2023-06-05] MEDS: FOLIC ACID 1 MG TABLET (FP) PO SCH (09:28)
[2023-06-05] MEDS: propRANOLol HCL 10 MG TABLET PO SCH ×2 (09:28→21:30)
[2023-06-05] MEDS: MAGNESIUM OXIDE 400 MG TABLET (FP) PO SCH (09:28)
[2023-06-05] MEDS: CYANOCOBALAMIN 1,000 MCG TABLET (FP) PO SCH (09:28)
[2023-06-05] MEDS: ALLOPURINOL 100 MG TABLET (FP) PO SCH (09:28)
[2023-06-05] MEDS: HEPARIN NA (PORCINE) 5,000 UNITS/ML 1ML VIAL SQ SCH ×2 (09:29→21:30)
[2023-06-05] MEDS: FERROUS SO4 325 MG TABLET (FP) PO SCH (10:24)
[2023-06-05] MEDS: ACETAMINOPHEN 325 MG TABLET (FP) PO PRN ×2 (10:52→18:24)
[2023-06-05] MEDS: SODIUM CHLORIDE 1,000 ML IV SCH (15:20)
[2023-06-05] MEDS: VANCOMYCIN/WATER FOR INJ (PEG) 1,000 MG/200 ML BAG IVPB SCH (21:00)
[2023-06-05] MEDS: LORATADINE 10 MG TABLET PO SCH (21:29)
[2023-06-05] MEDS: MELATONIN 1 MG TABLET PO SCH (21:30)
[2023-06-06] MEDS: LEVOTHYROXINE NA 50 MCG TABLET (FP) PO SCH (06:39)
[2023-06-06] MEDS: SODIUM BICARBONATE 325 MG TABLET PO SCH ×3 (06:39→22:23)
[2023-06-06 08:34] LABS: HEMATOCRIT 28.1 % (32.4-45.2); HEMOGLOBIN 8.8 GM/dL (10.7-15.3); MCH 29.4 pg (25.7-33.7); MCHC 31.4 g/dl (32.0-36.0); MEAN CELL VOLUME 93.5 fl (80-96); MEAN PLT VOLUME 6.9 fl (7.5-11.1); PLATELET COUNT 83 10^3/uL (134-434); RDW 17.7 % (11.6-15.6); WHITE BLOOD COUNT 20.2 K/mm3 (4.0-10.0)
[2023-06-06 09:07] LABS: ANISOCYTOSIS 0; HELMET CELLS 0; HOWELL-JOLLY BODIES 0; MACROCYTOSIS 0; OVALOCYTE 0; ROULEAU 0; SICKELED CELLS 0; TARGET CELLS 0; TEAR DROP CELLS 0; TOXIC GRANULATION 0
[2023-06-06 09:15] LABS: POTASSIUM 4.7 mmol/L (3.5-5.1)
[2023-06-06 09:21] LABS: ALBUMIN 2.7 g/dl (3.4-5.0)
[2023-06-06 09:22] LABS: BLOOD UREA NITROGEN 41.2 mg/dL (7-18)
[2023-06-06 09:25] LABS: CREATININE 1.8 mg/dL (0.55-1.3)
[2023-06-06 09:27] LABS: BILIRUBIN,TOTAL 0.3 mg/dL (0.2-1); TOT PROT 4.9 g/dl (6.4-8.2)
[2023-06-06] MEDS: SODIUM CHLORIDE 1,000 ML IV SCH ×2 (10:02→22:27)
[2023-06-06] MEDS: MAGNESIUM OXIDE 400 MG TABLET (FP) PO SCH (10:06)
[2023-06-06] MEDS: ALLOPURINOL 100 MG TABLET (FP) PO SCH (10:06)
[2023-06-06] MEDS: FERROUS SO4 325 MG TABLET (FP) PO SCH (10:06)
[2023-06-06] MEDS: HEPARIN NA (PORCINE) 5,000 UNITS/ML 1ML VIAL SQ SCH ×2 (10:06→22:25)
[2023-06-06] MEDS: CYANOCOBALAMIN 1,000 MCG TABLET (FP) PO SCH (10:06)
[2023-06-06] MEDS: FOLIC ACID 1 MG TABLET (FP) PO SCH (10:06)
[2023-06-06] MEDS: propRANOLol HCL 10 MG TABLET PO SCH ×2 (10:07→22:41)
[2023-06-06] MEDS: SODIUM ZIRCONIUM CYCLOSILICATE 10 GM PO SCH ×2 (10:11→10:15)
[2023-06-06] MEDS: KETOROLAC TROMETHAMINE 15 MG/ML VIAL IVPUSH PRN (11:12)
[2023-06-06] MEDS: ACETAMINOPHEN 325 MG TABLET (FP) PO PRN (13:56)
[2023-06-06] MEDS: VANCOMYCIN/WATER FOR INJ (PEG) 1,000 MG/200 ML BAG IVPB SCH (22:22)
[2023-06-06] MEDS: MELATONIN 1 MG TABLET PO SCH (22:22)
[2023-06-06] MEDS: LORATADINE 10 MG TABLET PO SCH (22:25)
[2023-06-07] MEDS: LEVOTHYROXINE NA 50 MCG TABLET (FP) PO SCH (06:34)
[2023-06-07] MEDS: SODIUM BICARBONATE 325 MG TABLET PO SCH ×2 (06:34→13:18)
[2023-06-07] MEDS: ACETAMINOPHEN 325 MG TABLET (FP) PO PRN (06:35)
[2023-06-07] MEDS: HEPARIN NA (PORCINE) 5,000 UNITS/ML 1ML VIAL SQ SCH ×2 (09:35→22:46)
[2023-06-07] MEDS: ALLOPURINOL 100 MG TABLET (FP) PO SCH (09:36)
[2023-06-07] MEDS: KETOROLAC TROMETHAMINE 15 MG/ML VIAL IVPUSH PRN (09:36)
[2023-06-07] MEDS: FERROUS SO4 325 MG TABLET (FP) PO SCH (09:36)
[2023-06-07] MEDS: CYANOCOBALAMIN 1,000 MCG TABLET (FP) PO SCH (09:36)
[2023-06-07] MEDS: FOLIC ACID 1 MG TABLET (FP) PO SCH (09:36)
[2023-06-07] MEDS: MAGNESIUM OXIDE 400 MG TABLET (FP) PO SCH (09:36)
[2023-06-07] MEDS: propRANOLol HCL 10 MG TABLET PO SCH ×2 (09:36→22:43)
[2023-06-07] MEDS: SODIUM CHLORIDE 1,000 ML IV SCH (16:58)
[2023-06-07] MEDS ORDERED: ALPRAZolam 0.25 MG TABLET PO PRN (18:37)
[2023-06-07] MEDS: LORATADINE 10 MG TABLET PO SCH (22:43)
[2023-06-07] MEDS: MELATONIN 1 MG TABLET PO SCH (22:43)
[2023-06-08] MEDS: SODIUM BICARBONATE 325 MG TABLET PO SCH ×4 (03:45→21:10)
[2023-06-08] MEDS: VANCOMYCIN/WATER FOR INJ (PEG) 1,000 MG/200 ML BAG IVPB SCH (03:47)
[2023-06-08] MEDS: LEVOTHYROXINE NA 50 MCG TABLET (FP) PO SCH (06:20)
[2023-06-08] MEDS: propRANOLol HCL 10 MG TABLET PO SCH ×2 (10:20→21:09)
[2023-06-08] MEDS: CYANOCOBALAMIN 1,000 MCG TABLET (FP) PO SCH (10:21)
[2023-06-08] MEDS: FERROUS SO4 325 MG TABLET (FP) PO SCH (10:21)
[2023-06-08] MEDS: FOLIC ACID 1 MG TABLET (FP) PO SCH (10:21)
[2023-06-08] MEDS: ALLOPURINOL 100 MG TABLET (FP) PO SCH (10:21)
[2023-06-08] MEDS: HEPARIN NA (PORCINE) 5,000 UNITS/ML 1ML VIAL SQ SCH ×2 (10:21→21:10)
[2023-06-08] MEDS: SODIUM CHLORIDE 1,000 ML IV SCH (10:21)
[2023-06-08] MEDS: MAGNESIUM OXIDE 400 MG TABLET (FP) PO SCH (10:21)
[2023-06-08] MEDS: KETOROLAC TROMETHAMINE 15 MG/ML VIAL IVPUSH PRN (10:42)
[2023-06-08] MEDS: ALPRAZolam 0.25 MG TABLET PO PRN (12:29)
[2023-06-08] MEDS: MELATONIN 1 MG TABLET PO SCH (21:09)
[2023-06-08] MEDS: LORATADINE 10 MG TABLET PO SCH (21:09)
[2023-06-08] MEDS: ACETAMINOPHEN 325 MG TABLET (FP) PO PRN (21:12)
[2023-06-09] MEDS: ALPRAZolam 0.25 MG TABLET PO PRN (03:05)
[2023-06-09] MEDS: ACETAMINOPHEN 325 MG TABLET (FP) PO PRN (03:05)
[2023-06-09] MEDS: SODIUM BICARBONATE 325 MG TABLET PO SCH ×3 (06:36→22:13)
[2023-06-09] MEDS: LEVOTHYROXINE NA 50 MCG TABLET (FP) PO SCH (06:36)
[2023-06-09] MEDS: FERROUS SO4 325 MG TABLET (FP) PO SCH (11:04)
[2023-06-09] MEDS: FOLIC ACID 1 MG TABLET (FP) PO SCH (11:04)
[2023-06-09] MEDS: propRANOLol HCL 10 MG TABLET PO SCH ×2 (11:04→22:09)
[2023-06-09] MEDS: ALLOPURINOL 100 MG TABLET (FP) PO SCH (11:05)
[2023-06-09] MEDS: CYANOCOBALAMIN 1,000 MCG TABLET (FP) PO SCH (11:05)
[2023-06-09] MEDS: MAGNESIUM OXIDE 400 MG TABLET (FP) PO SCH (11:05)
[2023-06-09] MEDS: HEPARIN NA (PORCINE) 5,000 UNITS/ML 1ML VIAL SQ SCH ×2 (11:06→22:12)
[2023-06-09] MEDS: traMADol HCL 50 MG TABLET PO PRN ×2 (11:10→18:22)
[2023-06-09] MEDS: LORATADINE 10 MG TABLET PO SCH (22:11)
[2023-06-09] MEDS: MELATONIN 1 MG TABLET PO SCH (22:11)
[2023-06-10] MEDS: ALPRAZolam 0.25 MG TABLET PO PRN ×2 (02:23→22:02)
[2023-06-10] MEDS: traMADol HCL 50 MG TABLET PO PRN ×2 (02:23→15:23)
[2023-06-10 05:51] VITALS: RESP 18
[2023-06-10] MEDS: LEVOTHYROXINE NA 50 MCG TABLET (FP) PO SCH (06:18)
[2023-06-10] MEDS: SODIUM BICARBONATE 325 MG TABLET PO SCH ×3 (06:18→21:54)
[2023-06-10 08:25] LABS: HEMATOCRIT 28.2 % (32.4-45.2); MCH 29.8 pg (25.7-33.7); MCHC 31.9 g/dl (32.0-36.0); MEAN CELL VOLUME 93.5 fl (80-96); PLATELET COUNT 97 10^3/uL (134-434); RBC 3.02 M/mm3 (3.60-5.2); RDW 17.5 % (11.6-15.6); WHITE BLOOD COUNT 16.3 K/mm3 (4.0-10.0)
[2023-06-10 08:58] LABS: CALCIUM 8.5 mg/dL (8.5-10.1)
[2023-06-10 09:00] LABS: ALBUMIN 2.8 g/dl (3.4-5.0); BLOOD UREA NITROGEN 47.4 mg/dL (7-18)
[2023-06-10 09:02] LABS: CREATININE 1.7 mg/dL (0.55-1.3)
[2023-06-10 09:05] LABS: BILIRUBIN,TOTAL 0.2 mg/dL (0.2-1)
[2023-06-10] MEDS: ALLOPURINOL 100 MG TABLET (FP) PO SCH (09:41)
[2023-06-10] MEDS: propRANOLol HCL 10 MG TABLET PO SCH ×2 (09:41→21:45)
[2023-06-10] MEDS: CYANOCOBALAMIN 1,000 MCG TABLET (FP) PO SCH (09:41)
[2023-06-10] MEDS: MULTIVITAMINS (DAILY MVI) TABLET (FP) PO SCH (09:41)
[2023-06-10] MEDS: FOLIC ACID 1 MG TABLET (FP) PO SCH (09:41)
[2023-06-10] MEDS: FERROUS SO4 325 MG TABLET (FP) PO SCH (09:41)
[2023-06-10] MEDS: MAGNESIUM OXIDE 400 MG TABLET (FP) PO SCH (09:42)
[2023-06-10 09:57] LABS: ANISOCYTOSIS 2+; MACROCYTOSIS 0; OVALOCYTE 2+
[2023-06-10] MEDS: ACETAMINOPHEN 325 MG TABLET (FP) PO PRN (18:52)
[2023-06-10] MEDS: MELATONIN 1 MG TABLET PO SCH (21:44)
[2023-06-10] MEDS: LORATADINE 10 MG TABLET PO SCH (21:45)
[2023-06-10] MEDS: HEPARIN NA (PORCINE) 5,000 UNITS/ML 1ML VIAL SQ SCH (21:45)
[2023-06-11] MEDS: LEVOTHYROXINE NA 50 MCG TABLET (FP) PO SCH (06:15)
[2023-06-11] MEDS: SODIUM BICARBONATE 325 MG TABLET PO SCH ×2 (06:15→07:00)
[2023-06-11 08:24] VITALS: BP 163/70; PULSE 59; TEMP 97.9
[2023-06-11] MEDS: propRANOLol HCL 10 MG TABLET PO SCH (09:18)
[2023-06-11] MEDS: ALLOPURINOL 100 MG TABLET (FP) PO SCH (09:18)
[2023-06-11] MEDS: MULTIVITAMINS (DAILY MVI) TABLET (FP) PO SCH (09:18)
[2023-06-11] MEDS: FERROUS SO4 325 MG TABLET (FP) PO SCH (09:18)
[2023-06-11] MEDS: FOLIC ACID 1 MG TABLET (FP) PO SCH (09:18)
[2023-06-11] MEDS: CYANOCOBALAMIN 1,000 MCG TABLET (FP) PO SCH (09:18)
[2023-06-11] MEDS: HEPARIN NA (PORCINE) 5,000 UNITS/ML 1ML VIAL SQ SCH (09:23)
[2023-06-11] MEDS: MAGNESIUM OXIDE 400 MG TABLET (FP) PO SCH (09:26)
== END 2023-06-11 12:17 | DRG 603 ==
LOC: JER 17:11 → JERBED 20:08 → J7W 06-04 01:32
PROVIDERS: ADMIT Internal Medicine; ATTEND Internal Medicine
DX: L03.116 Cellulitis of left lower limb (principal); N17.9 Acute kidney failure, unspecified; C85.90 Non-Hodgkin lymphoma, unspecified, unspecified site; E03.9 Hypothyroidism, unspecified; D69.6 Thrombocytopenia, unspecified; I73.9 Peripheral vascular disease, unspecified; I87.8 Other specified disorders of veins; D50.9 Iron deficiency anemia, unspecified; I12.9 Hypertensive chronic kidney disease with stage 1 through stage 4 chronic kidney disease, or unspecified chronic kidney disease; N18.9 Chronic kidney disease, unspecified; R16.1 Splenomegaly, not elsewhere classified; D72.829 Elevated white blood cell count, unspecified; Z88.0 Allergy status to penicillin; Z93.2 Ileostomy status; Z85.43 Personal history of malignant neoplasm of ovary
CPT/HCPCS: 36415; 36430; 71045-TC-FY; 80048; 80053; 82272; 83540; 83550; 83735; 84100; 85025; 85610; 85730; 86850; 86900; 86901; 86922; 87040; 87081; 87635; 93005; 93010; 93971-TC; 97116-GP; 97162-GP; 99285-25; G0480; J1644; P9058

== ENCOUNTER 2023-07-06 14:16 | Inpatient (IN) | payer OTHER ==
[2023-07-06] MEDS ORDERED: ACETAMINOPHEN 1000 MG/100 ML BAG IVPB ONE (15:44)
[2023-07-06] MEDS ORDERED: SODIUM CHLORIDE 0.9% 500 ML INFUS.BAG IV ONE ×3 (15:44→18:22)
[2023-07-06] MEDS ORDERED: ACETAMINOPHEN INJECTION 100 ML IVPB ONE (15:53)
[2023-07-06 16:41] LABS: BASO % 0.1 % (0-2.0); EOS % 0.2 % (0-4.5); HEMATOCRIT 27.9 % (32.4-45.2); HEMOGLOBIN 8.6 GM/dL (10.7-15.3); LYMPH % 79.5 % (8-40); MCH 28.5 pg (25.7-33.7); MCHC 30.8 g/dl (32.0-36.0); MEAN CELL VOLUME 92.6 fl (80-96); MEAN PLT VOLUME 7.2 fl (7.5-11.1); MONO % 2.9 % (3.8-10.2); NEUT % 17.3 % (42.8-82.8); PLATELET COUNT 122 10^3/uL (134-434); RBC 3.01 M/mm3 (3.60-5.2); RDW 18.9 % (11.6-15.6)
[2023-07-06 16:43] LABS: WHITE BLOOD COUNT 48.3 K/mm3 (4.0-10.0)
[2023-07-06 16:44] LABS: VENOUS BASE EXCESS -13.6 mmol/L (-2-2); VENOUS O2 SATURATION 39.4 % (70-80)
[2023-07-06 16:47] LABS: VENOUS PH 7.177 (7.310-7.410)
[2023-07-06 16:48] LABS: INR 1.15 (0.83-1.09); PROTHROMBIN TIME (PATIENT) 13.3 SEC (9.7-13.0)
[2023-07-06 16:50] LABS: ACTIVATED PTT 29.6 SECONDS (25.2-36.5)
[2023-07-06 17:01] LABS: CHLORIDE 117 mmol/L (98-107); SODIUM 141 mmol/L (136-145)
[2023-07-06 17:04] LABS: ALBUMIN 2.5 g/dl (3.4-5.0); BLOOD UREA NITROGEN 93.3 mg/dL (7-18); CO2 16 mmol/L (21-32); GLUCOSE,RANDOM 98 mg/dL (74-106)
[2023-07-06 17:07] LABS: CREATININE 5.7 mg/dL (0.55-1.3); SGOT/AST 21 U/L (15-37); SGPT/ALT 25 U/L (13-61)
[2023-07-06 17:08] LABS: BILIRUBIN,TOTAL 0.3 mg/dL (0.2-1); TOT PROT 5.6 g/dl (6.4-8.2)
[2023-07-06 17:09] LABS: ALK PHOS 124 U/L (45-117)
[2023-07-06] MEDS ORDERED: CEFEPIME HCL/D5W 2 GM/50 ML BAG IVPB ONE (17:15)
[2023-07-06 17:20] LABS: ANION GAP 8 mmol/L (4-13); POTASSIUM 6.3 mmol/L (3.5-5.1)
[2023-07-06 17:22] LABS: EPI CELLS 2 /uL (0-25.1); HYALINE CASTS 1 /uL (0-3.1); PH,URINE 6.5 (5.0-8.0); URINE APPEARANCE TURBID; URINE BACTERIA 7645 /uL (0-1359); URINE BILIRUBIN NEGATIVE (NEGATIVE); URINE COLOR YELLOW; URINE GLUCOSE (UA) NEGATIVE (NEGATIVE); URINE KETONE NEGATIVE (NEGATIVE); URINE LEUK ESTERASE 3+ (NEGATIVE); URINE NITRITE POSITIVE (NEGATIVE); URINE PROTEIN 2+ (NEGATIVE); URINE RBC 49 /uL (0-23.9); URINE UROBILINOGEN 0.2 mg/dL (0.2-1.0); URINE WBC 5037 /uL (0-25.8)
[2023-07-06] MEDS ORDERED: CEFEPIME 2 GM/100 ML BAG IVPB ONE (17:27)
[2023-07-06] MEDS ORDERED: VANCOMYCIN 1,000 MG in DEXTROSE 5%-WATER - 250 ML IVPB ONE (17:42)
[2023-07-06 17:46] LABS: ANISOCYTOSIS 3+; MACROCYTOSIS 0; OVALOCYTE 1+; TEAR DROP CELLS 1+
[2023-07-06] MEDS ORDERED: SODIUM BICARBONATE 4.2% 5 MEQ/10 ML DISP.SYRIN IVPUSH ONE ×2 (17:56→18:25)
[2023-07-06] MEDS ORDERED: ALBUTEROL SO4 2.5/IPRATROPIUM 0.5 INH SOL 3 ML VIAL.NEB. NEB ONE ×2 (18:13→18:25)
[2023-07-06] MEDS ORDERED: MEROPENEM 1 GM VIAL (RESTRICTED TO ID) IVPB ONE (18:13)
[2023-07-06] MEDS ORDERED: VANCOMYCIN 1 GRAM (PRE-DOCKED) 1,000 MG/250 ML BAG IVPB ONE (18:25)
[2023-07-06 20:39] LABS: POTASSIUM 5.6 mmol/L (3.5-5.1)
[2023-07-06 20:41] LABS: BLOOD UREA NITROGEN 90.5 mg/dL (7-18); CALCIUM 8.5 mg/dL (8.5-10.1)
[2023-07-06 20:45] LABS: CREATININE 5.5 mg/dL (0.55-1.3)
[2023-07-06] MEDS ORDERED: SODIUM CHLORIDE 1,000 ML IV SCH (22:45)
[2023-07-06] MEDS ORDERED: MEROPENEM 500 MG in DEXTROSE 5%-WATER 100 ML IVPB SCH (22:45)
[2023-07-06 23:23] LABS: PHOSPHOROUS 4.5 mg/dL (2.5-4.9)
[2023-07-06] MEDS ORDERED: MEROPENEM 500 MG VIAL (RESTRICTED TO ID) IVPB ONE (23:24)
[2023-07-06] MEDS: MEROPENEM 500 MG in DEXTROSE 5%-WATER 100 ML IVPB SCH (23:37)
[2023-07-07] MEDS: ACETAMINOPHEN 1000 MG/100 ML BAG IVPB PRN ×2 (00:20→18:21)
[2023-07-07] MEDS ORDERED: ACETAMINOPHEN INJECTION 100 ML IVPB ONE (00:22)
[2023-07-07] MEDS ORDERED: hydrOXYzine HCL 100 MG/2 ML VIAL IM ONE (02:38)
[2023-07-07] MEDS ORDERED: hydrOXYzine HCL 50 MG/ML VIAL IM ONE (02:40)
[2023-07-07] MEDS ORDERED: HEPARIN NA (PORCINE) 5,000 UNITS/ML 1ML VIAL SQ SCH (06:00)
[2023-07-07 08:00] LABS: HEMATOCRIT 23.9 % (32.4-45.2); HEMOGLOBIN 7.1 GM/dL (10.7-15.3); MCHC 29.9 g/dl (32.0-36.0); MEAN CELL VOLUME 93.8 fl (80-96); MEAN PLT VOLUME 7.3 fl (7.5-11.1); PLATELET COUNT 110 10^3/uL (134-434); RBC 2.55 M/mm3 (3.60-5.2); RDW 18.2 % (11.6-15.6)
[2023-07-07 08:23] LABS: POTASSIUM 5.4 mmol/L (3.5-5.1)
[2023-07-07 08:29] LABS: WHITE BLOOD COUNT 35.3 K/mm3 (4.0-10.0)
[2023-07-07 08:34] LABS: CALCIUM 8.3 mg/dL (8.5-10.1)
[2023-07-07 08:35] LABS: ALBUMIN 2.1 g/dl (3.4-5.0); BLOOD UREA NITROGEN 89.9 mg/dL (7-18)
[2023-07-07 08:38] LABS: CREATININE 5.2 mg/dL (0.55-1.3); PHOSPHOROUS 4.5 mg/dL (2.5-4.9)
[2023-07-07 08:39] LABS: BILIRUBIN,TOTAL 0.4 mg/dL (0.2-1); TOT PROT 4.6 g/dl (6.4-8.2)
[2023-07-07] MEDS ORDERED: MEROPENEM 500 MG VIAL (RESTRICTED TO ID) IVPB ONE (08:58)
[2023-07-07] MEDS: HEPARIN NA (PORCINE) 5,000 UNITS/ML 1ML VIAL SQ SCH ×2 (09:41→21:12)
[2023-07-07] MEDS ORDERED: SODIUM ZIRCONIUM CYCLOSILICATE (LOKELMA) 10 GM PACKET PO SCH (10:00)
[2023-07-07] MEDS ORDERED: SODIUM BICARBONATE 8.4% 50 MEQ/50 ML DISP.SYRIN IVPUSH ONE (10:00)
[2023-07-07] MEDS: MEROPENEM 500 MG in DEXTROSE 5%-WATER 100 ML IVPB SCH ×2 (10:01→18:51)
[2023-07-07] MEDS ORDERED: SODIUM BICARBONATE 8.4% 50 MEQ/50 ML DISP.SYRIN ONE (10:04)
[2023-07-07] MEDS: SODIUM BICARBONATE 8.4% - 100 MEQ in DEXTROSE 5%-WATER - 1,000 ML IV SCH ×2 (11:13→23:22)
[2023-07-08] MEDS: MEROPENEM 500 MG in DEXTROSE 5%-WATER 100 ML IVPB SCH ×3 (01:11→17:30)
[2023-07-08] MEDS: HEPARIN NA (PORCINE) 5,000 UNITS/ML 1ML VIAL SQ SCH ×2 (09:20→21:43)
[2023-07-08 10:24] LABS: POTASSIUM 4.2 mmol/L (3.5-5.1)
[2023-07-08 10:33] LABS: CALCIUM 8.3 mg/dL (8.5-10.1)
[2023-07-08 10:34] LABS: ALBUMIN 1.8 g/dl (3.4-5.0); BLOOD UREA NITROGEN 85.8 mg/dL (7-18)
[2023-07-08 10:37] LABS: CREATININE 4.3 mg/dL (0.55-1.3)
[2023-07-08 10:39] LABS: BILIRUBIN,TOTAL 0.4 mg/dL (0.2-1); TOT PROT 4.2 g/dl (6.4-8.2)
[2023-07-08] MEDS: DEXTROSE 5%-0.45% SALINE 1,000 ML IV SCH (17:30)
[2023-07-08] MEDS: ACETAMINOPHEN 1000 MG/100 ML BAG IVPB PRN (18:22)
[2023-07-09] MEDS ORDERED: MEROPENEM 500 MG VIAL (RESTRICTED TO ID) IVPB ONE (01:04)
[2023-07-09] MEDS: MEROPENEM 500 MG in DEXTROSE 5%-WATER 100 ML IVPB SCH ×3 (01:25→17:17)
[2023-07-09] MEDS: LEVOTHYROXINE NA 50 MCG TABLET (FP) PO SCH (06:32)
[2023-07-09] MEDS: HEPARIN NA (PORCINE) 5,000 UNITS/ML 1ML VIAL SQ SCH ×2 (09:13→22:01)
[2023-07-09] MEDS: ALLOPURINOL 100 MG TABLET (FP) PO SCH ×2 (09:13→09:14)
[2023-07-09] MEDS: ACETAMINOPHEN 1000 MG/100 ML BAG IVPB PRN (14:54)
[2023-07-09] MEDS: DEXTROSE 5%-0.45% SALINE 1,000 ML IV SCH (16:37)
[2023-07-10] MEDS: MEROPENEM 500 MG in DEXTROSE 5%-WATER 100 ML IVPB SCH ×3 (02:33→17:00)
[2023-07-10] MEDS: LEVOTHYROXINE NA 50 MCG TABLET (FP) PO SCH (06:05)
[2023-07-10] MEDS: ALLOPURINOL 100 MG TABLET (FP) PO SCH (09:21)
[2023-07-10] MEDS: HEPARIN NA (PORCINE) 5,000 UNITS/ML 1ML VIAL SQ SCH ×2 (09:22→21:20)
[2023-07-10] MEDS: SODIUM CHLORIDE 1,000 ML IV SCH (18:19)
[2023-07-11] MEDS: MEROPENEM 500 MG in DEXTROSE 5%-WATER 100 ML IVPB SCH ×3 (01:16→17:41)
[2023-07-11] MEDS: LEVOTHYROXINE NA 50 MCG TABLET (FP) PO SCH (06:04)
[2023-07-11] MEDS: HEPARIN NA (PORCINE) 5,000 UNITS/ML 1ML VIAL SQ SCH ×2 (10:27→21:24)
[2023-07-11] MEDS: propRANOLol HCL 10 MG TABLET PO SCH (10:28)
[2023-07-11] MEDS: ALLOPURINOL 100 MG TABLET (FP) PO SCH (10:29)
[2023-07-11] MEDS: VITAMIN B COMP W-C 1 EA TABLET (NEPHRO-VITE) PO SCH (10:29)
[2023-07-11 11:50] LABS: HEMATOCRIT 24.4 % (32.4-45.2); HEMOGLOBIN 7.5 GM/dL (10.7-15.3); MCH 28.4 pg (25.7-33.7); MCHC 30.6 g/dl (32.0-36.0); MEAN CELL VOLUME 92.6 fl (80-96); MEAN PLT VOLUME 7.5 fl (7.5-11.1); PLATELET COUNT 145 10^3/uL (134-434); RBC 2.64 M/mm3 (3.60-5.2); WHITE BLOOD COUNT 27.4 K/mm3 (4.0-10.0)
[2023-07-11 12:01] LABS: POTASSIUM 4.1 mmol/L (3.5-5.1)
[2023-07-11 12:07] LABS: ALBUMIN 1.9 g/dl (3.4-5.0)
[2023-07-11 12:08] LABS: BLOOD UREA NITROGEN 72.4 mg/dL (7-18)
[2023-07-11 12:11] LABS: CREATININE 2.8 mg/dL (0.55-1.3)
[2023-07-11 12:12] LABS: BILIRUBIN,TOTAL 0.3 mg/dL (0.2-1); TOT PROT 4.5 g/dl (6.4-8.2)
[2023-07-11 12:34] LABS: ANISOCYTOSIS 1+; MACROCYTOSIS 0; OVALOCYTE 1+
[2023-07-11] MEDS: SODIUM CHLORIDE 1,000 ML IV SCH (20:00)
[2023-07-11] MEDS: ALPRAZolam 0.25 MG TABLET PO PRN (20:08)
[2023-07-12] MEDS: MEROPENEM 500 MG in DEXTROSE 5%-WATER 100 ML IVPB SCH ×3 (01:11→17:48)
[2023-07-12] MEDS: LEVOTHYROXINE NA 50 MCG TABLET (FP) PO SCH (06:12)
[2023-07-12] MEDS: propRANOLol HCL 10 MG TABLET PO SCH (10:46)
[2023-07-12] MEDS: ALPRAZolam 0.25 MG TABLET PO PRN (10:46)
[2023-07-12] MEDS: HEPARIN NA (PORCINE) 5,000 UNITS/ML 1ML VIAL SQ SCH ×2 (10:47→21:51)
[2023-07-12] MEDS: ALLOPURINOL 100 MG TABLET (FP) PO SCH (10:47)
[2023-07-12] MEDS: VITAMIN B COMP W-C 1 EA TABLET (NEPHRO-VITE) PO SCH (10:48)
[2023-07-12] MEDS: SODIUM CHLORIDE 1,000 ML IV SCH (17:49)
[2023-07-13] MEDS: MEROPENEM 500 MG in DEXTROSE 5%-WATER 100 ML IVPB SCH ×3 (02:00→17:46)
[2023-07-13] MEDS: LEVOTHYROXINE NA 50 MCG TABLET (FP) PO SCH (06:13)
[2023-07-13] MEDS: ALLOPURINOL 100 MG TABLET (FP) PO SCH (10:00)
[2023-07-13] MEDS: propRANOLol HCL 10 MG TABLET PO SCH (10:00)
[2023-07-13] MEDS: VITAMIN B COMP W-C 1 EA TABLET (NEPHRO-VITE) PO SCH (10:00)
[2023-07-13 10:37] LABS: HEMATOCRIT 25.6 % (32.4-45.2); HEMOGLOBIN 7.8 GM/dL (10.7-15.3); MCH 28.2 pg (25.7-33.7); MCHC 30.5 g/dl (32.0-36.0); MEAN CELL VOLUME 92.4 fl (80-96); MEAN PLT VOLUME 7.7 fl (7.5-11.1); PLATELET COUNT 143 10^3/uL (134-434); RBC 2.77 M/mm3 (3.60-5.2); RDW 17.6 % (11.6-15.6)
[2023-07-13 10:41] LABS: WHITE BLOOD COUNT 36.4 K/mm3 (4.0-10.0)
[2023-07-13 11:05] LABS: POTASSIUM 4.3 mmol/L (3.5-5.1)
[2023-07-13 11:21] LABS: CALCIUM 8.3 mg/dL (8.5-10.1)
[2023-07-13 11:22] LABS: ALBUMIN 2.2 g/dl (3.4-5.0); BLOOD UREA NITROGEN 55.6 mg/dL (7-18); CREATININE 2.1 mg/dL (0.55-1.3)
[2023-07-13 11:24] LABS: BILIRUBIN,TOTAL 0.2 mg/dL (0.2-1); TOT PROT 4.6 g/dl (6.4-8.2)
[2023-07-13] MEDS: HEPARIN NA (PORCINE) 5,000 UNITS/ML 1ML VIAL SQ SCH (11:27)
[2023-07-13 12:55] LABS: ANISOCYTOSIS 0; MACROCYTOSIS 0
[2023-07-13] MEDS: ALPRAZolam 0.25 MG TABLET PO PRN (15:55)
[2023-07-13] MEDS: SODIUM CHLORIDE 1,000 ML IV SCH (17:46)
[2023-07-13] MEDS ORDERED: ALPRAZolam 0.25 MG TABLET PO ONE (22:16)
[2023-07-14] MEDS: MEROPENEM 500 MG in DEXTROSE 5%-WATER 100 ML IVPB SCH ×3 (02:28→17:04)
[2023-07-14] MEDS: LEVOTHYROXINE NA 50 MCG TABLET (FP) PO SCH (06:29)
[2023-07-14] MEDS: VITAMIN B COMP W-C 1 EA TABLET (NEPHRO-VITE) PO SCH (09:22)
[2023-07-14] MEDS: ALLOPURINOL 100 MG TABLET (FP) PO SCH (09:22)
[2023-07-14] MEDS: propRANOLol HCL 10 MG TABLET PO SCH (09:22)
[2023-07-14 11:43] LABS: HEMATOCRIT 25.4 % (32.4-45.2); HEMOGLOBIN 7.7 GM/dL (10.7-15.3); MCH 27.8 pg (25.7-33.7); MCHC 30.2 g/dl (32.0-36.0); MEAN CELL VOLUME 92.1 fl (80-96); MEAN PLT VOLUME 7.4 fl (7.5-11.1); PLATELET COUNT 152 10^3/uL (134-434); RBC 2.76 M/mm3 (3.60-5.2); RDW 17.1 % (11.6-15.6)
[2023-07-14 12:11] LABS: WHITE BLOOD COUNT 46.7 K/mm3 (4.0-10.0)
[2023-07-14 12:47] LABS: ANISOCYTOSIS 0; MACROCYTOSIS 0
[2023-07-14] MEDS ORDERED: MEROPENEM 500 MG VIAL (RESTRICTED TO ID) IVPB ONE (16:53)
[2023-07-14] MEDS: SODIUM CHLORIDE 1,000 ML IV SCH (17:19)
[2023-07-14] MEDS: QUEtiapine FUMARATE 25 MG TABLET PO SCH (22:02)
[2023-07-15] MEDS ORDERED: TAMSULOSIN HCL 0.4 MG CAP PO ONE (03:07)
[2023-07-15] MEDS: MEROPENEM 500 MG in DEXTROSE 5%-WATER 100 ML IVPB SCH ×2 (03:24→10:35)
[2023-07-15] MEDS: LEVOTHYROXINE NA 50 MCG TABLET (FP) PO SCH (07:04)
[2023-07-15] MEDS: propRANOLol HCL 10 MG TABLET PO SCH (10:23)
[2023-07-15] MEDS: VITAMIN B COMP W-C 1 EA TABLET (NEPHRO-VITE) PO SCH (10:23)
[2023-07-15] MEDS: ALLOPURINOL 100 MG TABLET (FP) PO SCH (10:23)
[2023-07-15] MEDS: ALPRAZolam 0.25 MG TABLET PO PRN (10:23)
[2023-07-15] MEDS: ACETAMINOPHEN 325 MG TABLET (FP) PO PRN ×2 (10:23→15:55)
[2023-07-15] MEDS: TAMSULOSIN HCL 0.4 MG CAP PO SCH (12:08)
[2023-07-15] MEDS: SODIUM CHLORIDE 1,000 ML IV SCH ×2 (16:33→21:36)
[2023-07-15] MEDS: QUEtiapine FUMARATE 25 MG TABLET PO SCH (21:35)
[2023-07-16] MEDS: LEVOTHYROXINE NA 50 MCG TABLET (FP) PO SCH (06:19)
[2023-07-16] MEDS: TAMSULOSIN HCL 0.4 MG CAP PO SCH (09:46)
[2023-07-16] MEDS: propRANOLol HCL 10 MG TABLET PO SCH (09:46)
[2023-07-16] MEDS: ALLOPURINOL 100 MG TABLET (FP) PO SCH (09:46)
[2023-07-16] MEDS: VITAMIN B COMP W-C 1 EA TABLET (NEPHRO-VITE) PO SCH (09:46)
[2023-07-16] MEDS: ALPRAZolam 0.25 MG TABLET PO PRN (12:44)
[2023-07-16] MEDS: SODIUM CHLORIDE 1,000 ML IV SCH (13:02)
[2023-07-16] MEDS: QUEtiapine FUMARATE 25 MG TABLET PO SCH (22:41)
[2023-07-17] MEDS: SODIUM CHLORIDE 1,000 ML IV SCH (06:21)
[2023-07-17] MEDS: LEVOTHYROXINE NA 50 MCG TABLET (FP) PO SCH (06:23)
[2023-07-17] MEDS: TAMSULOSIN HCL 0.4 MG CAP PO SCH (07:54)
[2023-07-17] MEDS: propRANOLol HCL 10 MG TABLET PO SCH (09:00)
[2023-07-17] MEDS: VITAMIN B COMP W-C 1 EA TABLET (NEPHRO-VITE) PO SCH (09:00)
[2023-07-17] MEDS: ALLOPURINOL 100 MG TABLET (FP) PO SCH (09:01)
[2023-07-17] MEDS: ACETAMINOPHEN 325 MG TABLET (FP) PO PRN (13:08)
[2023-07-17] MEDS: QUEtiapine FUMARATE 25 MG TABLET PO SCH (21:48)
[2023-07-18] MEDS: SODIUM CHLORIDE 1,000 ML IV SCH ×2 (04:12→22:03)
[2023-07-18] MEDS: LEVOTHYROXINE NA 50 MCG TABLET (FP) PO SCH (06:35)
[2023-07-18 08:50] LABS: HEMATOCRIT 22.4 % (32.4-45.2); MCH 27.7 pg (25.7-33.7); MCHC 29.8 g/dl (32.0-36.0); MEAN CELL VOLUME 93.2 fl (80-96); MEAN PLT VOLUME 7.5 fl (7.5-11.1); PLATELET COUNT 157 10^3/uL (134-434); WHITE BLOOD COUNT 27.9 K/mm3 (4.0-10.0)
[2023-07-18 08:58] LABS: HEMOGLOBIN 6.7 GM/dL (10.7-15.3)
[2023-07-18 09:06] LABS: POTASSIUM 5.1 mmol/L (3.5-5.1)
[2023-07-18 09:08] LABS: CALCIUM 8.5 mg/dL (8.5-10.1)
[2023-07-18 09:10] LABS: ALBUMIN 2.2 g/dl (3.4-5.0); BLOOD UREA NITROGEN 41.6 mg/dL (7-18)
[2023-07-18 09:12] LABS: CREATININE 1.7 mg/dL (0.55-1.3)
[2023-07-18 09:14] LABS: BILIRUBIN,TOTAL 0.4 mg/dL (0.2-1); TOT PROT 4.4 g/dl (6.4-8.2)
[2023-07-18] MEDS: VITAMIN B COMP W-C 1 EA TABLET (NEPHRO-VITE) PO SCH (09:51)
[2023-07-18] MEDS: propRANOLol HCL 10 MG TABLET PO SCH (09:51)
[2023-07-18] MEDS: TAMSULOSIN HCL 0.4 MG CAP PO SCH (09:51)
[2023-07-18] MEDS: ALLOPURINOL 100 MG TABLET (FP) PO SCH (09:52)
[2023-07-18 15:58] VITALS: RESP 18
[2023-07-18] MEDS: QUEtiapine FUMARATE 25 MG TABLET PO SCH (22:03)
[2023-07-19] MEDS: LEVOTHYROXINE NA 50 MCG TABLET (FP) PO SCH (06:28)
[2023-07-19 09:20] LABS: HEMATOCRIT 25.6 % (32.4-45.2); HEMOGLOBIN 8.4 GM/dL (10.7-15.3); MCH 29.5 pg (25.7-33.7); MCHC 32.8 g/dl (32.0-36.0); MEAN CELL VOLUME 89.8 fl (80-96); MEAN PLT VOLUME 7.6 fl (7.5-11.1); PLATELET COUNT 146 10^3/uL (134-434); RBC 2.85 M/mm3 (3.60-5.2); RDW 16.3 % (11.6-15.6); WHITE BLOOD COUNT 27.6 K/mm3 (4.0-10.0)
[2023-07-19 10:02] LABS: ANISOCYTOSIS 1+; MACROCYTOSIS 0
[2023-07-19] MEDS: VITAMIN B COMP W-C 1 EA TABLET (NEPHRO-VITE) PO SCH (10:02)
[2023-07-19] MEDS: ALLOPURINOL 100 MG TABLET (FP) PO SCH (10:02)
[2023-07-19] MEDS: propRANOLol HCL 10 MG TABLET PO SCH (10:02)
[2023-07-19] MEDS: TAMSULOSIN HCL 0.4 MG CAP PO SCH (10:03)
[2023-07-19] MEDS: ACETAMINOPHEN 325 MG TABLET (FP) PO PRN (21:32)
[2023-07-19] MEDS: SODIUM CHLORIDE 1,000 ML IV SCH (21:33)
[2023-07-19] MEDS: QUEtiapine FUMARATE 25 MG TABLET PO SCH (21:33)
[2023-07-20 03:21] VITALS: BP 138/60; PULSE 65; TEMP 97.5
[2023-07-20] MEDS: LEVOTHYROXINE NA 50 MCG TABLET (FP) PO SCH (05:59)
[2023-07-20] MEDS: propRANOLol HCL 10 MG TABLET PO SCH (10:18)
[2023-07-20] MEDS: VITAMIN B COMP W-C 1 EA TABLET (NEPHRO-VITE) PO SCH (10:18)
[2023-07-20] MEDS: ALLOPURINOL 100 MG TABLET (FP) PO SCH (10:18)
[2023-07-20] MEDS: TAMSULOSIN HCL 0.4 MG CAP PO SCH (10:19)
[2023-07-20 10:37] LABS: POTASSIUM 4.9 mmol/L (3.5-5.1)
[2023-07-20 11:06] LABS: CALCIUM 8.5 mg/dL (8.5-10.1)
[2023-07-20 11:07] LABS: ALBUMIN 2.3 g/dl (3.4-5.0)
[2023-07-20 11:09] LABS: CREATININE 1.6 mg/dL (0.55-1.3)
[2023-07-20 11:11] LABS: BILIRUBIN,TOTAL 0.4 mg/dL (0.2-1); TOT PROT 4.6 g/dl (6.4-8.2)
[2023-07-20 13:20] VITALS: BMI 17.8
== END 2023-07-20 14:11 | DRG 871 ==
LOC: JER 14:16 → JERBED 20:23 → J6S 07-07 12:17
PROVIDERS: ADMIT Student in an Organized Health Care Education/Training Program; ATTEND Internal Medicine
PROC: 30233N1 Transfusion of Nonautologous Red Blood Cells into Peripheral Vein, Percutaneous Approach (ICD-10-PCS; principal; 2023-07-18)
DX: A41.89 Other specified sepsis (principal); G93.41 Metabolic encephalopathy; J18.9 Pneumonia, unspecified organism; C85.80 Other specified types of non-Hodgkin lymphoma, unspecified site; N17.9 Acute kidney failure, unspecified; N39.0 Urinary tract infection, site not specified; E87.20 Acidosis, unspecified; I12.9 Hypertensive chronic kidney disease with stage 1 through stage 4 chronic kidney disease, or unspecified chronic kidney disease; N18.9 Chronic kidney disease, unspecified; E03.9 Hypothyroidism, unspecified; N31.9 Neuromuscular dysfunction of bladder, unspecified; E86.0 Dehydration; E87.5 Hyperkalemia; R33.9 Retention of urine, unspecified; N20.0 Calculus of kidney; R79.89 Other specified abnormal findings of blood chemistry; D50.9 Iron deficiency anemia, unspecified; B96.1 Klebsiella pneumoniae [K. pneumoniae] as the cause of diseases classified elsewhere; Z93.2 Ileostomy status; Z85.43 Personal history of malignant neoplasm of ovary
CPT/HCPCS: 0241U-QW; 36415; 36430; 71045-TC-FY; 76775-TC; 80048; 80053; 81003; 82140; 82308; 82550; 82553; 82570; 82803; 82962; 83605; 83615; 83735; 84100; 84300; 84443; 84484; 85025; 85027; 85610; 85651; 85730; 86140; 86850; 86900; 86901; 86922; 87040; 87070; 87086; 87186; 87205; 87324; 87449; 87635; 88300-TC; 93005; 93010; 97116-GP; 97161-GP; 99285-25; J1644; P9058